=== PATIENT | female | born 1975 | race Caucasian/White ===

== ENCOUNTER 2019-01-06 14:07 | Inpatient (IN) | payer BC ==
[2019-01-06] VITALS (25 sets, daily range): BP systolic 80–112; BP diastolic 39–79
[~2019-01-06] VITALS: Ht 165.1 cm; Wt 105.7 kg
--- NOTE | 2019-01-06 14:09 | NUR ---
PT WHEELCHAIRED TO ER BED 8
--- NOTE | 2019-01-06 14:23 | NUR ---
URINE CUP HANDED TO PT FOR SAMPLE
[2019-01-06] MEDS ORDERED: NACL 0.9% 500 ML IV ONE (14:27)
[2019-01-06] MEDS ORDERED: ONDANSETRON 4 MG/2 ML VIAL IVP ONE (14:30)
[2019-01-06] MEDS ORDERED: KETOROLAC 30 MG/ML VIAL IVP ONE (14:30)
--- NOTE | 2019-01-06 14:33 | NUR ---
BROUGHT IN BY FROM CLINIC, REFERRED TO R/O KIDNEY STONES. PT C/O LOWER BACK PAIN AND DYSURIA X TODAY. PT REPORTS INTERMITENT STABING PAIN IN LT LOWER BACK AND BURNING URINATION AT 03/31. + N/V. DENIES INJURY. VSS. ER TO SEE PT. RECEIVED TORADOL IM FROM CLINIC HX---DENIES RX---NONE
--- NOTE | 2019-01-06 14:48 | NUR ---
PT LETHARGIC AND HYPOTENSIVE WITH BP OF 89/41, ER MD NOTIFIED.
--- NOTE | 2019-01-06 15:00 | NUR ---
DR BARAHONA MADE AWARE OF BLOOD SUGAR AND BP. NEW IVF ORDERED. NS BOLUS OF 500 COMPLETED NOW.
[2019-01-06] MEDS ORDERED: DEXT 5% / NACL 0.9% 500 ML IV ONE (15:05)
--- NOTE | 2019-01-06 15:13 | NUR ---
PT WHEELCHAIRED TO BATHROOM BY LING HERNANDEZ TO PROVIDE URINE SAMPLE.
[2019-01-06] MEDS ORDERED: ASPIRIN 81 MG TAB.CHEW PO ONE (15:30)
--- NOTE | 2019-01-06 15:31 | NUR ---
PT GOING TO CT AT THIS TIME
[2019-01-06 15:34] LABS: APPEARANCE,URINE CLOUDY (CLEAR); BILIRUBIN,URINE NEGATIVE (NEGATIVE); BLOOD, URINE 3+ (NEGATIVE); COLOR,URINE ORANGE (YELLOW); LEUKOCYTE ESTERASE ,URINE TRACE (NEGATIVE); NITRITE, URINE POSITIVE (NEGATIVE); PH,URINE 5.5 (5.0-9.0); UGLUCOSE NEGATIVE (NEGATIVE)
[2019-01-06 15:37] LABS: RBC,URINE TOO NUMEROUS TO COUN /HPF (0-5)
--- NOTE | 2019-01-06 15:40 | NUR ---
PT RETURNED FROM CT WITHOUT PROBLEMS.
[2019-01-06] MEDS ORDERED: DOPamine 400 MG/D5W PREMIX 250 ML IV ONE (15:45)
[2019-01-06] MEDS ORDERED: LEVOFLOXACIN 500 MG/D5W PREMIX 100 ML IV ONE (15:45)
--- NOTE | 2019-01-06 16:07 | NUR ---
BP 77/30, WENT UP TO 10MCG/MIN/KG ON DOBUTAMINE
[2019-01-06] MEDS ORDERED: METOCLOPRAMIDE 10 MG/2 ML INJ VIAL IVP ONE (16:10)
--- NOTE | 2019-01-06 16:20 | NUR ---
PT VOMITING YELLOW EMESIS, ER MD MADE AWARE.
--- NOTE | 2019-01-06 16:27 | NUR ---
PT BP 92/38, MAP OF 56, TITRATED UP TO 15MCG/KG/MIN, PT TACHYCARDIC AT 130. ER MADE AWARE.
--- NOTE | 2019-01-06 16:29 | NUR ---
PT REPORTS THROBING HEADACHE ON RT SIDE OF HEAD AT 8/10. PT DENIES CP, SOB, OR VISUAL DISTRURBANCES.
[2019-01-06 16:38] LABS: BASOPHILS % (AUTO) 0.1 % (0.0-2.0); EOSINOPHILS % (AUTO) 0.2 % (0.0-4.0); HEMATOCRIT 40.6 % (36-48); HEMOGLOBIN 13.6 g/dL (12.0-16.0); LYMPHOCYTES # (AUTO) 0.1 K/uL (2.5-16.5); LYMPHOCYTES % (AUTO) 3.8 % (20.5-51.1); MEAN CORPUSCULAR HEMOGLOBIN 30 pg (27-31); MEAN CORPUSCULAR HGB CONC 34 g/dL (33-37); MONOCYTES % (AUTO) 0.9 % (1.7-9.3); NEUTROPHILS # (AUTO) 3.5 K/uL (1.8-7.7); PLATELET COUNT (AUTO) 57 K/uL (140-450); RED BLOOD CELL COUNT(AUTO) 4.56 MIL/uL (4.20-5.40); RED CELL DISTRIBUTION WIDTH 13.3 % (11.6-13.7); WHITE BLOOD COUNT (AUTO) 3.6 K/uL (4.8-10.8)
--- NOTE | 2019-01-06 16:40 | NUR ---
DOPAMINE INCREASED TO 20MCQ/MIN. PT TACHYCARDIC. DR BARAHONA MADE AWARE. BP 105/32 (55)
[2019-01-06] MEDS ORDERED: NACL 0.9% 1,000 ML IV ONE ×3 (16:45→19:20)
--- NOTE | 2019-01-06 16:45 | NUR ---
PT DENIES PAIN AT THIS TIME.
[2019-01-06 16:47] LABS: PROTHROMBIN TIME 9.6 secs (10.8-13.4)
[2019-01-06 16:51] LABS: ALBUMIN 3.1 g/dL (3.4-5.0); ANION GAP 19.5 (8-16); CREATININE 1.1 mg/dL (0.6-1.3); POTASSIUM 3.5 mmol/L (3.5-5.1); TOTAL BILIRUBIN 0.6 mg/dL (0.0-1.0)
[2019-01-06] MEDS ORDERED: PHENYLEPHRINE 10 MG in NACL 0.9% 250 ML IV ONE (16:55)
--- NOTE | 2019-01-06 16:58 | NUR ---
DOBUTAMINE DOWN TO 15MCG/KG/MIN.
[2019-01-06] MEDS ORDERED: NACL 0.9% 1,000 ML IV SCH (16:59)
[2019-01-06] MEDS ORDERED: DOCUSATE SODIUM 100 MG GELCAP PO PRN (17:00)
[2019-01-06] MEDS ORDERED: MORPHINE SULFATE 2 MG/ML SYR IVP PRN (17:00)
--- NOTE | 2019-01-06 17:02 | NUR ---
STOPPED DOBUTAMINE, DR BARAHONA AT BEDSIDE. PT AAOX4, COOPERATIVE, SPEECH CLEAR.
[2019-01-06] MEDS ORDERED: PHENYLEPHRINE 10 MG/ML VIAL ONE ×4 (17:09→22:25)
--- NOTE | 2019-01-06 17:10 | NUR ---
STARTED JIM-SYNEPHRINE. PT HYPOTENSIVE AT 68/23, HEART RATE HAS DECREASED TO 112, PT DENIES PAIN AT THIS TIME, PT AAOX4, DR BARAHONA AT BEDSIDE.
--- NOTE | 2019-01-06 17:20 | NUR ---
INCREASED JIM-SYNEPHRINE TO 100MCG/MIN. PT SHIVERING, TEMPERATURE 98.5. FAMILY AT BEDSIDE. PT AAOX4, SPEECH CLEAR
--- NOTE | 2019-01-06 17:30 | NUR ---
ADMITTED FROM ER THIS 43 YR. OLD FEMALE PER [facility]. BY ER NURSES WITH CC OF BLOOD IN THE URINE AND BACK PAIN, VOMITING. DENIES ANY BACK PAIN AT THIS TIME. IV NEOSYNEPHRINE DRIP AT 100 MCG/MIN VIA LEFT HAND IV SITE. 0.9 NS BOLUS INFUSING VIA RT AC IV SITE. CUPOLA TENDER HELPER SHOWS ST. AWAKE , ALERT, ORIENTED. ABLE TO REPOSITION SELF IN BED WITH MINIMAL ASSISTANCE. RESP. EASY AND REGULAR. 02 SAT 98% ON RA. SL. GEN. EDEMA NOTED.
--- NOTE | 2019-01-06 17:30 | NUR ---
Patient will be admitted to care of [facility]. Admited to ICU VIA GUANA W/ VSS. Will go to room ICU 5. Belongings list completed. Report to CHARGE NURSE.
--- NOTE | 2019-01-06 17:45 | NUR ---
0.9 NS BOLUS INFUSED. IV 0.9 NS STARTED AT 160 ML/HR.
[2019-01-06 17:53] LABS: CHOL/HDL RATIO 9.1 (1-4.5); FREE T4 (FREE THYROXINE) 1.02 ng/dL (0.76-1.46); MAGNESIUM 1.4 mg/dL (1.8-2.4); THYROID STIMULATING HORMONE 1.69 uIU/mL (0.34-3.74)
[2019-01-06] MEDS ORDERED: KETOROLAC 15 MG/ML VIAL IVP PRN (17:55)
--- NOTE | 2019-01-06 18:00 | NUR ---
AT BEDSIDE. DR. BOLANOS SPOKE TO PT RE: CENTRAL LINE. REFUSED TO HAVE IT AT THIS TIME.
[2019-01-06] MEDS ORDERED: MAG SULF 2000 MG/WATER PREMIX 50 ML IV ONE (18:15)
[2019-01-06] MEDS ORDERED: SODIUM PHOS / POTASSIUM PHOS 1 PKT PDR PO SCH (18:15)
[2019-01-06] MEDS: NACL 0.9% 1,000 ML IV SCH (18:26)
--- NOTE | 2019-01-06 18:30 | NUR ---
HAVING CHILLS AT TIMES BUT PT REMAINS AFEBRILE.
--- NOTE | 2019-01-06 19:00 | NUR ---
DR. SCHWARZ HERE TO SEE AND EXAMINE PT. REPORT GIVEN TO Lesa ROCHE RN
[2019-01-06] MEDS ORDERED: PHENYLEPHRINE 10 MG in NACL 0.9% 250 ML IV PRN (19:05)
--- NOTE | 2019-01-06 19:10 | NUR ---
ASSUMED CARE OF PT.INITIAL ASSESSMENT COMPLETED.PT AWAKE ALERT AND ORIENTED X4.ON ROOM AIR.NO SOB NOTED.PERIPHERAL IV TO LT F/A G22 INTACT INFUSING ORDERED IVF.AND PERIPHERAL IV TO RT AC G20 INTACT INFUSING JIM SYNEPHRINE 10MG IN 250ML NS AT 100MCG/MIN(150ML/HR).ABDOMEN SOFT NON TENDER.PT ABLE TO MOVE ALL EXTREMITIES.SKIN INTACT.PT C/O PAIN TO RT SHOULDER.WILL MEDICATE WITH TORADOL ORDERED BY DR BOLANOS.
--- NOTE | 2019-01-06 19:25 | NUR ---
DR SCHWARZ EXPLAINED TO PT THE NEED FOR CENTRAL LINE; PT VERBALIZED UNDERSTANDING.CONSENT OBTAINED.WITNESSED BY MARY DEGROOT RN
[2019-01-06] MEDS ORDERED: PIPERACILLIN/TAZOBACTAM 3.375 GM VIAL IV ONE (19:54)
[2019-01-06] MEDS: PIPERACILLIN/TAZOBACTAM 3.375 GM in DEXTROSE 5% 50 ML IV SCH (20:26)
[2019-01-06 20:43] LABS: BARBITURATE, URINE NEG. ng/ml (NEG <=200); BENZODIAZEPINE, URINE NEG. ng/mL (NEG <=200); CANNABINOID, URINE NEG. ng/mL (NEG <=50); COCAINE, URINE NEG. ng/mL (NEG <=300); OPIATE, URINE NEG. ng/mL (NEG <=2000); PHENCYCLIDINE SCREEN,URINE NEG. ng/mL (NEG <=25)
[2019-01-06] MEDS: DEXT 5% /NACL 0.9% 1,000 ML IV SCH (21:06)
[2019-01-06] MEDS: KETOROLAC 15 MG/ML VIAL IVP PRN (22:19)
--- NOTE | 2019-01-06 22:30 | NUR ---
TRIPLE LUMEN CATHETER TO RT IJ INSERTED BY DR BOLANOS.NO BLEEDING NOTED TO SITE; XRAY DONE
[2019-01-06] MEDS: PHENYLEPHRINE 40 MG in NACL 0.9% 250 ML IV PRN (23:25)
[2019-01-07] VITALS (95 sets, daily range): BP systolic 83–112; BP diastolic 37–96
[2019-01-07] MEDS: NACL 0.9% 1,000 ML IV SCH
--- NOTE | 2019-01-07 01:00 | NUR ---
PT GIVEN MORPHINE FOR PAIN TO RT SHOULDER THAT EXTENDS TO ELBOW AND FOREARM AT 0031; PT STILL C/O OF PAIN TO THE AREA; DR BOLANOS AWARE;CAME TO SEE AND EXAMINED PT. AWARE THAT TORADOL X2 AND MORPHINE ALREADY GIVEN FOR THE PAIN ON THAT SITE; AWAITING US TECH TO PERFORM US TO RUE. PT AND PTS WHO WAS AT BEDSIDE AT THIS TIME IS AWARE.
--- NOTE | 2019-01-07 01:30 | NUR ---
US TO RUE COMPLETED.AWAITING RESULT
--- NOTE | 2019-01-07 02:03 | NUR ---
PHONE CALL TO DR BOLANOS RE; PT COMPLAINING OF WORSENING PAIN AND NOW NUMBNESS TO HER RIGHT FINGERS; MADE AWARE THAT MORPHINE WAS GIVEN 0031; ICE COMPRESS ALREADY DONE, AFFECTED EXTREMITY ELEVATE; PT REPOSITIONED.NON OF THESE INTERVENTIONS WORKED.AWAITING ORDERS FROM DR BOLANOS. Addendum: 01/07/19 at 0209 by Christy Morgan RN AWARE ULTRASOUND REPORT FOR US RUE; NO EVIDENCE OF DVT NOTED
[2019-01-07] MEDS ORDERED: MORPHINE SULFATE 2 MG/ML SYR IVP PRN (02:10)
[2019-01-07] MEDS ORDERED: METHOCARBAMOL 500 MG TAB PO PRN (02:10)
[2019-01-07] MEDS ORDERED: PIPERACILLIN/TAZOBACTAM 3.375 GM VIAL IV ONE (03:21)
[2019-01-07] MEDS: DEXT 5% /NACL 0.9% 1,000 ML IV SCH ×4 (03:27→20:52)
[2019-01-07] MEDS: HYDROcodone/APAP 7.5/325 MG 1 TAB PO PRN ×2 (03:34→20:49)
--- NOTE | 2019-01-07 03:34 | NUR ---
PT STILL VERBALIZING 10/10 PAIN TO RUE, FROM SHOULDER TO FINGERS.MORPHINE NOT WORKING PER PT.NORCO GIVEN ORDERED. EXTREMITY ELEVATED; REPOSITIONED.WILL CONTINUE TO MONITOR
--- NOTE | 2019-01-07 04:00 | NUR ---
PT DOZING ON AND OFF; STILL C/O PAIN TO RUE FROM SHOULDER ,ELBOW TO FINGERS.VERBALIZED NUMBNESS TO FINGERS GETTING BETTER.PT ABLE TO MOVE HANDS AT THIS TIME.ROM EXERCISE DONE WITH GOOD EFFECT
[2019-01-07] MEDS: PIPERACILLIN/TAZOBACTAM 3.375 GM in DEXTROSE 5% 50 ML IV SCH (04:37)
[2019-01-07] MEDS: PHENYLEPHRINE 40 MG in NACL 0.9% 250 ML IV PRN ×3 (04:48→20:51)
--- NOTE | 2019-01-07 06:11 | NUR ---
PT ASLEEP; NO S/SX OF PAIN AT THIS TIME.LEFT UNDISTURBED FOR NOW.STILL ON JIM SYNEPHRINE 40MG IN 250ML NS AT 100MCG/MIN(37.5ML/HR).TOLERATING ROOM AIR.NO SOB NOTED.TLC TO RT IJ INTACT WITH GOOD BLOOD RETURN TO ALL 3 PORTS.RIVERA CATHETER INTACT.
[2019-01-07 06:25] LABS: ANION GAP 14.6 (8-16); CARBON DIOXIDE 20.8 mmol/L (21-32); CREATININE 0.7 mg/dL (0.6-1.3); POTASSIUM 3.4 mmol/L (3.5-5.1)
[2019-01-07 06:27] LABS: CHOL/HDL RATIO 6.9 (1-4.5); MAGNESIUM 1.9 mg/dL (1.8-2.4); PHOSPHORUS 1.4 mg/dL (2.5-4.9)
--- NOTE | 2019-01-07 07:34 | NUR ---
RECEIVED PT IN BED. A&O X4. BILATERAL LUNGS SOUNDS CLEAR. DENIES PAIN OR DISCOMFORT AT THIS TIME. DENIES PAIN ON THE RIGHT SHOULDER. BOWEL SOUNDS HEARD FROM ALL 4 QUADS. SATING 94% IN RA. CENTRAL LINE TO RIGHT IJ WITH TRIPLE LUMEN. ALL PATENT AND ASYMPTOMATIC. CAPILLARY REFILL WITHIN 3 SEC. NO EDEMA NOTED. RIVERA CATHETER IN PLACE. NO FEVER. ON NORSYNEPHRINE DRIP RUNNING AT 100 MCG/MIN. SKIN INTACT. RESIDENTS MAKING ROUNDS AT THIS TIME AND PT EXPLAINED OF THE PROGNOSIS AND UNDERSTOOD THE TREATMENT PLAN. CALL LIGHT IN REACH. BED KEPT ELEVATED 30 DEGREES. WILL CONTINUE TO MONITOR.
[2019-01-07] MEDS: TAMSULOSIN 0.4 MG CAP PO SCH (07:54)
--- NOTE | 2019-01-07 08:03 | NUR ---
DR. SCHWARZ AT BED SIDE. NEW ORDER RECEIVED FOR CVP MONITORING. NOTED AND WILL CARRY OUT.
--- NOTE | 2019-01-07 08:26 | NUR ---
CVP INSTALLED ORDERED AND READS 11 AT THIS TIME. WILL CONTINUE TO MONITOR.
[2019-01-07 08:50] LABS: BASOPHILS % (AUTO) 0.1 % (0.0-2.0); EOSINOPHILS # (AUTO) 0.2 K/uL (0-0.4); EOSINOPHILS % (AUTO) 2.2 % (0.0-4.0); HEMATOCRIT 35.3 % (36-48); LYMPHOCYTES # (AUTO) 0.4 K/uL (2.5-16.5); LYMPHOCYTES % (AUTO) 3.9 % (20.5-51.1); MEAN CORPUSCULAR HEMOGLOBIN 30 pg (27-31); MEAN CORPUSCULAR HGB CONC 34 g/dL (33-37); MEAN CORPUSCULAR VOLUME 88.5 fL (80-94); MONOCYTES # (AUTO) 0.6 K/uL (0.8-1.0); NEUTROPHILS # (AUTO) 9.1 K/uL (1.8-7.7); NEUTROPHILS % (AUTO) 87.8 % (42.2-75.2); PLATELET COUNT (AUTO) 68 K/uL (140-450); RED BLOOD CELL COUNT(AUTO) 3.99 MIL/uL (4.20-5.40); RED CELL DISTRIBUTION WIDTH 13.4 % (11.6-13.7); WHITE BLOOD COUNT (AUTO) 10.3 K/uL (4.8-10.8)
--- NOTE | 2019-01-07 09:13 | NUR ---
PT CONSUMED ABOUT 50% OF THE CLEAR LIQUID DIET. DENIES ANY PAIN OR DISCOMFORT. REPOSITIONED FOR COMFORT. WILL CONTINUE TO MONITOR.
[2019-01-07] MEDS ORDERED: POTASSIUM CHLORIDE 10 MEQ TABER PO SCH (09:15)
[2019-01-07] MEDS: SODIUM PHOS / POTASSIUM PHOS 1 PKT PDR PO SCH ×2 (09:38→20:07)
--- NOTE | 2019-01-07 09:45 | NUR ---
PK=[id number]. TITRATED DOWN NORSYNEPHRINE DRIP TO 50 MCG/MIN.
[2019-01-07] MEDS: THIAMINE 200 MG in NACL 0.9% 50 ML IV SCH ×2 (09:58→20:07)
--- NOTE | 2019-01-07 10:08 | NUR ---
AT BED SIDE.
--- NOTE | 2019-01-07 10:35 | NUR ---
PT STATED THAT SHE DOESN'T FEEL LIKE SHE NEEDS TO DEFECATE BUT FEELS LIKE SHE HAS GAS TO PASS. PT TRYING TO PASS GAS AT THIS TIME. REPOSITIONED FOR COMFORT. WILL CONTINUE TO MONITOR.
--- NOTE | 2019-01-07 10:42 | NUR ---
DR. AGUIRRE MADE AWARE OF PT FEELING LIKE HAVING GAS IN THE LOWER ABDOMEN. NEW ORDER RECEIVED AND WILL CARRY OUT.
[2019-01-07] MEDS ORDERED: SIMETHICONE 80 MG TAB.CHEW PO PRN (10:45)
--- NOTE | 2019-01-07 10:50 | NUR ---
NEOSYNEPHRINE DRIP TITRATED UP TO 100 MCG/MIN. BP=86/42. WILL CONTINUE TO MONITOR.
--- NOTE | 2019-01-07 10:57 | NUR ---
KUB BEING PERFORMED AT BED SIDE AT THIS TIME.
[2019-01-07] MEDS: ASCORBIC ACID INJ 1,500 MG in NACL 0.9% 100 ML IV SCH ×3 (11:37→23:24)
[2019-01-07] MEDS: PIPER/TAZO 3.375GM/D5W PREMIX 50 ML IV SCH ×2 (12:23→20:49)
--- NOTE | 2019-01-07 12:50 | NUR ---
PT CONSUMED 80% OF LUNCH MEAL.
[2019-01-07] MEDS: ACETAMINOPHEN 325 MG TAB PO PRN (13:05)
--- NOTE | 2019-01-07 13:05 | NUR ---
PT C/O HEADACHE 10/01. ADMINISTERED MED ORDERED. AFEBRILE. VSS. WILL CONTINUE TO MONITOR.
--- NOTE | 2019-01-07 13:54 | NUR ---
PT NO S/SX PAIN. ASLEEP AT THIS TIME AND VSS. WILL CONTINUE TO MONITOR.
--- NOTE | 2019-01-07 14:19 | NUR ---
VISITORS AT BED SIDE AT THIS TIME.
[2019-01-07] MEDS ORDERED: LEVOFLOXACIN 750 MG/D5W PREMIX 150 ML IV SCH (16:00)
--- NOTE | 2019-01-07 16:42 | NUR ---
VISITORS CONSISTENTLY COME IN TO VISIT THE PT. PT DENIES OF ANY PAIN OR DISCOMFORT AT THIS TIME. CONTINUING WITH NORSYNEPHRINE DRIPS AT 100 MCG/MIN. WILL CONTINUE TO MONITOR.
--- NOTE | 2019-01-07 17:57 | NUR ---
SISTER AT BED SIDE. DINNER SERVED. REPOSITIONED FOR DINNER. VSS. WILL CONTINUE TO MONITOR.
--- NOTE | 2019-01-07 18:35 | NUR ---
XA=[phone]. NEOSYNEPHRINE DRIP TITRATED DOWN TO 50 MCG/MIN. WILL CONTINUE TO MONITOR.
--- NOTE | 2019-01-07 19:02 | NUR ---
PT REQUESTED TO HAVE NO MORE VISITORS EXCEPT HER SO THAT SHE CAN REST.
--- NOTE | 2019-01-07 19:13 | NUR ---
BED SIDE REPORT GIVEN TO NIGHT NURSE FOR CONTINUITY OF CARE. PT VSS. DENIES ANY PAIN OR DISCOMFORT. ALL SAFETY PRECAUTIONS ARE IN PLACE.
--- NOTE | 2019-01-07 19:15 | NUR ---
ASSUMED CARE OF PT.INITIAL ASSESSMENT COMPLETED.PT AWAKE ALERT AND ORIENTED X4.ON ROOM AIR.DENIES SOB.SR TO ST NOTED ON MONITOR.TRIPLE LUMEN CATHETER TO RT IJ INTACT WITH GOOD BLOOD RETURN TO ALL 3 PORTS INFUSING ORDERED IVF AND JIM SYNEPHRINE 40MG IN 250ML NS AT 40MCG/MIN(15ML/HR).CVP LINE ZEROED(10).SKIN REMAINS INTACT.PT ABLE TO MOVE ALL EXTREMITIES.RIVERA CATHETER INTACT WITH CLEAR YELLOW URINE, ADEQUATE AMT.DENIES PAIN WHEN ASKED.REPOSITIONED.CALL LIGHT WITHIN REACH.INSTRUCTED TO CALL FOR ASSISTANCE.
--- NOTE | 2019-01-07 20:30 | NUR ---
V/B ; UPDATED ON PTS PRESENT CONDITION.QUESTIONS ANSWERED.
--- NOTE | 2019-01-07 21:45 | NUR ---
PT ASLEEP AT THIS TIME; EASILY AROUSABLE.DENIES PAIN WHEN ASKED AFTER NORCO WAS GIVEN EARLIER FOR PAIN OF RT SHOULDER.JIM SYNEPHRINE STILL AT 40MCG/MIN.PT TOLERATING ROOM AIRN.DENIES SOB
--- NOTE | 2019-01-07 22:19 | NUR ---
PT C/O PAIN TO RT SHOULDER, NON RADIATING.REPOSITIONED.AFFECTED AREA ELEVATED WITH PILLOW.5/10 PAIN.NORCO GIVEN ORDERED.WILL MONITOR FOR EFFECTIVENESS OF PAIN MEDS
--- NOTE | 2019-01-07 23:19 | NUR ---
PT DOZING ON AND OFF AT THIS TIME.VERBALIZED RELIEF FROM PAIN ON RT SHOULDER. DENIES SOB ON ROOM AIR.
[2019-01-08] VITALS (34 sets, daily range): BP systolic 93–138; BP diastolic 58–80
--- NOTE | 2019-01-08 01:30 | NUR ---
PT ASLEEP; CENTRAL LINE TO RI IJ INTACT.JIM SYNEPHRINE 40MG IN 250ML NS AT 30MCG/MIN DECREASED TO 20MCG/MIN.BP 97/69.PROTOCOL TO KEEP SBP ABOVE 90 OR MAP ABOVE 65.WILL CONTINUE TO MONITOR VS
--- NOTE | 2019-01-08 03:30 | NUR ---
BP 106/68 JIM SYNEPHRINE ON HOLD FOR NOW.WILL CONTINUE TO MONITOR BP
[2019-01-08] MEDS: PIPER/TAZO 3.375GM/D5W PREMIX 50 ML IV SCH ×3 (05:00→20:38)
[2019-01-08] MEDS: DEXT 5% /NACL 0.9% 1,000 ML IV SCH (05:00)
--- NOTE | 2019-01-08 05:00 | NUR ---
MORNING AND ORAL CARE DONE WITH MINIMAL ASSISTANCE.RIVERA CATHETER CARE ALSO RENDERED. PT DENIES PAIN AT THIS TIME.JIM SYNEPHRINE STILL ON HOLD; BP117/79
--- NOTE | 2019-01-08 05:55 | NUR ---
PT VOIDED ABOUT 650ML BEFORE TRANSFER TO [facility]. I&O ALREADY DONE FOR SHIFT, WILL ENDORSE TO RECEIVING RN. Addendum: 01/09/19 at 0732 by Delia Fuentes RN DISREGARD, WRONG TIME.
[2019-01-08] MEDS: ASCORBIC ACID INJ 1,500 MG in NACL 0.9% 100 ML IV SCH ×3 (06:00→17:36)
--- NOTE | 2019-01-08 06:30 | NUR ---
DR NAGY AT BEDSIDE.SPOKE WITH PT. UPDATED ON PTS PRESENT CONDITION.QUESTIONS ANSWERED.MADE AWARE PT OFF JIM SYNEPHRINE SINCE 329
[2019-01-08 06:31] LABS: ANION GAP 10.4 (8-16); CARBON DIOXIDE 23.2 mmol/L (21-32); CREATININE 0.5 mg/dL (0.6-1.3); POTASSIUM 3.6 mmol/L (3.5-5.1)
[2019-01-08 06:33] LABS: MAGNESIUM 1.9 mg/dL (1.8-2.4); PHOSPHORUS 1.6 mg/dL (2.5-4.9)
--- NOTE | 2019-01-08 07:15 | NUR ---
RECEIVED REPORT FROM PAULIE ROCHE RN. PATIENT AWAKE ALERT AND ORIENTED. NO APPARENT PHYSICAL DISTRESS. NEURO INTACT. PERRL. SKIN WARM AND DRY TO TOUCH. LUNG SOUNDS EQUAL BILATERALLY. DENIES PAIN AT THIS TIME. RIGHT IJ CATHETER IN PLACE, INTACT AND PATENT. CVP MONITOR IN PLACE. ABDOMEN SOFT, NON-TENDER, NON-DISTENDED. RIVERA CATHETER IN PLACE, DRAINING TO GRAVITY. PERIPHERAL PULSES PALPABLE. SCD IN PLACE. SAFETY PRECAUTIONS IN PLACE. WILL CONTINUE TO MONITOR.
[2019-01-08] MEDS: NACL 0.9% 1,000 ML IV SCH ×2 (07:30→17:57)
[2019-01-08] MEDS: TAMSULOSIN 0.4 MG CAP PO SCH (08:13)
[2019-01-08] MEDS: THIAMINE 200 MG in NACL 0.9% 50 ML IV SCH ×2 (08:13→20:39)
[2019-01-08] MEDS: SODIUM PHOS / POTASSIUM PHOS 1 PKT PDR PO SCH (08:13)
[2019-01-08] MEDS: ACETAMINOPHEN 325 MG TAB PO PRN ×2 (08:14→16:22)
--- NOTE | 2019-01-08 08:14 | NUR ---
PATIENT COMPLAIN OF HEADACHE4-12/29, GIVEN PRN OF TYLENOL 650 MG PO. WILL CONTINUE TO MONITOR.
[2019-01-08] MEDS: ONDANSETRON 4 MG/2 ML VIAL IM/IVP PRN ×2 (08:23→18:09)
--- NOTE | 2019-01-08 08:23 | NUR ---
COMPLAIN OF FEELING NAUSEOUS, GIVEN ZOFRAN 4 MG IVP ORDERED. WILL CONTINUE TO MONITOR.
[2019-01-08] MEDS ORDERED: POTASSIUM PHOSPHATE 15 MM in NACL 0.9% 250 ML IV SCH (08:30)
--- NOTE | 2019-01-08 08:41 | NUR ---
PATIENT HAS BEEN SCREENED AND CATEGORIZED HIGH NUTRITION RISK. PATIENT WILL BE SEEN WITHIN 1-2 DAYS OF ADMISSION. 01/08/[address]
[2019-01-08 08:58] LABS: BASOPHILS % (AUTO) 0.2 % (0.0-2.0); EOSINOPHILS # (AUTO) 0.2 K/uL (0-0.4); EOSINOPHILS % (AUTO) 2.7 % (0.0-4.0); HEMATOCRIT 32.2 % (36-48); LYMPHOCYTES # (AUTO) 1.6 K/uL (2.5-16.5); LYMPHOCYTES % (AUTO) 27.2 % (20.5-51.1); MEAN CORPUSCULAR HEMOGLOBIN 30 pg (27-31); MEAN CORPUSCULAR HGB CONC 34 g/dL (33-37); MEAN CORPUSCULAR VOLUME 88.3 fL (80-94); MONOCYTES # (AUTO) 0.5 K/uL (0.8-1.0); MONOCYTES % (AUTO) 8.9 % (1.7-9.3); NEUTROPHILS # (AUTO) 3.6 K/uL (1.8-7.7); PLATELET COUNT (AUTO) 75 K/uL (140-450); RED BLOOD CELL COUNT(AUTO) 3.65 MIL/uL (4.20-5.40); RED CELL DISTRIBUTION WIDTH 14.1 % (11.6-13.7); WHITE BLOOD COUNT (AUTO) 5.9 K/uL (4.8-10.8)
[2019-01-08 09:53] LABS: T4 (THYROXINE) 8.7 ug/dL (4.5-12.0)
--- NOTE | 2019-01-08 11:15 | NUR ---
RIVERA CATHETER DISCONTINUED PER DR. NAGY. WILL MONITOR URINE OUTPUT.
[2019-01-08] MEDS: HYDROcodone/APAP 7.5/325 MG 1 TAB PO PRN (13:48)
[2019-01-08] MEDS: KETOROLAC 15 MG/ML VIAL IVP PRN (13:56)
--- NOTE | 2019-01-08 13:56 | NUR ---
PATIENT SEEN BY DR. NAGY. REPORTED HAVING A BAD HEADACHE, NOT RELIEVED BY TYLENOL. PATIENT JUST RECEIVED NORCO, DR. NAGY SAID OK TO GIVE TORADOL. WILL CONTINUE TO MONITOR.
--- NOTE | 2019-01-08 15:04 | NUR ---
01/08/19 RD INITIAL ASSESSMENT COMPLETED PLEASE REFER TO NUTRITION ASSESSMENT UNDER CARE ACTIVITY FOR ESTIMATED NUTRITIONAL NEEDS. 1. CONTINUE REGULAR DIET TOLERATED 2. RD PROVIDED LOWERED TRIGLYCERIDE NUTRITION EDUCATION AND CARDIAC TLC HANDOUT. PT ACCEPTED 3. RD TO FOLLOW-UP 3-5 DAYS, MODERATE RISK ZHAO GAMING, RD
--- NOTE | 2019-01-08 17:32 | NUR ---
CALLED NAZARIO HAUSER TO DISCONTINUE CVP MONITORING, PATIENT ON TELEMETRY STATUS AT THIS TIME.
[2019-01-08] MEDS ORDERED: APAP/BUTAL/CAFF 325/50/40 MG 1 TAB PO PRN (18:00)
--- NOTE | 2019-01-08 18:26 | NUR ---
PATIENT AWAKE, ALERT AND ORIENTED. MEDICATED FOR COMPLAIN OF HEADACHE X 3 WITH LITTLE RELIEF. GIVEN ZOFRAN X 2 FOR C/O NAUSEA. VSS. RIVERA CATHETER DISCONTINUED, VOIDING FREELY WITHOUT DIFFICULTY. CONTINUE ON IV FLUIDS. ASSISTED PATIENT UP TO BEDSIDE COMMODE, MIN ASSIST NEEDED. PATIENT CHANGED TO TELE STATUS. SAFETY PRECAUTION IN PLACE. WILL CONTINUE TO MONITOR.
--- NOTE | 2019-01-08 19:10 | NUR ---
REPORT GIVEN TO JACOBO LIVINGSTON FOR CONTINUITY OF CARE.
--- NOTE | 2019-01-08 19:11 | NUR ---
RECEIVED REPORT FROM DAY SHIFT RN FOR CONTINUITY OF CARE. PT AAOX4, ON ROOM AIR. ABLE TO FOLLOW COMMANDS AND MAKE NEEDS KNOWN. PT WITH GENERALIZED WEAKNESS, ABLE TO USE BEDSIDE COMMODE. SKIN IS INTACT. RIGHT IJ TRIPLE LUMEN CATH IN PLACE WITH GOOD BLOOD RETURN FROM 2/3 PORTS. DISCUSSED PLAN OF CARE WITH PT, PT VERBALIZED UNDERSTANDING. VITAL SIGNS STABLE, NO SIGNS OF DISTRESS NOTED. BED IN LOWEST POSITION, CALL LIGHT WITHIN REACH. WILL CONTINUE TO MONITOR CLOSELY.
--- NOTE | 2019-01-08 22:44 | NUR ---
PT USED BEDSIDE COMMODE AND VOIDED ABOUT 750ML, CLOUDY URINE.
[2019-01-09] VITALS: BP 117/77
--- NOTE | 2019-01-09 | NUR ---
VITAL SIGNS STABLE, NO SIGNS OF DISTRESS NOTED. BED IN LOWEST POSITION, CALL LIGHT WITHIN REACH. WILL CONTINUE TO MONITOR CLOSELY.
[2019-01-09] MEDS: ASCORBIC ACID INJ 1,500 MG in NACL 0.9% 100 ML IV SCH ×4 (00:58→18:09)
--- NOTE | 2019-01-09 02:15 | NUR ---
PT USED BEDSIDE COMMODE AND VOIDED 600ML, CLOUDY URINE.
[2019-01-09 04:00] VITALS: BP 114/80
--- NOTE | 2019-01-09 04:00 | NUR ---
VITAL SIGNS STABLE, NO SIGNS OF DISTRESS NOTED. BED IN LOWEST POSITION, CALL LIGHT WITHIN REACH. WILL CONTINUE TO MONITOR CLOSELY.
[2019-01-09] MEDS: PIPER/TAZO 3.375GM/D5W PREMIX 50 ML IV SCH ×3 (04:51→21:18)
[2019-01-09] MEDS: NACL 0.9% 1,000 ML IV SCH ×2 (05:55→06:43)
--- NOTE | 2019-01-09 05:55 | NUR ---
PT VOIDED ABOUT 650ML BEFORE TRANSFER TO [facility]. I&O ALREADY DONE FOR SHIFT, WILL ENDORSE TO RECEIVING RN.
--- NOTE | 2019-01-09 06:20 | NUR ---
TRANSFERRED PT TO [facility] ROOM 125-B. ENDORSED PT TO MARY IGFFORD. PT IN STABLE CONDITION, ALL BELONGINGS WITH PT.
[2019-01-09 06:28] LABS: ANION GAP 11.9 (8-16); CARBON DIOXIDE 23.7 mmol/L (21-32); CREATININE 0.5 mg/dL (0.6-1.3); POTASSIUM 3.6 mmol/L (3.5-5.1)
--- NOTE | 2019-01-09 06:34 | NUR ---
RECEIVED BEDSIDE REPORT FROM JACOBO HERNANDEZ. PATIENT IS AWAKE, ALERT, AND COOPERATIVE. SKIN IS WARM AND DRY. RIJ TLC NOTED 2/3 OF THE LINE FLUSHES. RESPIRATION EVEN UNLABORED ON ROOM AIR. NO DISTRESS NOTED. PLAN OF CARE WAS REVIEWED AND DISCUSSED. ALL SAFETY MEASURES IN PLACE. VITALS STABLE. BED IS AT LOW POSITION. CALL LIGHT WITHIN REACH AND VERBALIZES ITS USE. WILL CONTINUE TO MONITOR.
[2019-01-09 06:39] LABS: MAGNESIUM 1.9 mg/dL (1.8-2.4); PHOSPHORUS 2.1 mg/dL (2.5-4.9)
--- NOTE | 2019-01-09 07:30 | NUR ---
endorsed patient to day shift nurse for continuity of care. patient is in stable condition.
[2019-01-09 08:00] VITALS: BP 126/75
[2019-01-09] MEDS ORDERED: POTASSIUM PHOSPHATE 15 MM in NACL 0.9% 250 ML IV SCH (08:00)
[2019-01-09] MEDS: ONDANSETRON 4 MG/2 ML VIAL IM/IVP PRN (08:02)
[2019-01-09] MEDS: TAMSULOSIN 0.4 MG CAP PO SCH (08:50)
[2019-01-09] MEDS: DOCUSATE SODIUM 100 MG GELCAP PO SCH ×2 (08:50→21:00)
[2019-01-09] MEDS: APAP/BUTAL/CAFF 325/50/40 MG 1 TAB PO PRN ×2 (08:52→22:11)
[2019-01-09] MEDS: THIAMINE 200 MG in NACL 0.9% 50 ML IV SCH ×2 (08:52→20:05)
--- NOTE | 2019-01-09 08:59 | NUR ---
ADMINISTERED MEDS TO PT ORDERED. TOLERATED WELL. PT UP AND SITTING ON HER BED. ADMINISTERED MEDS FOR NAUSEA AND FOR HER ALEMAN. NO DISTRESS AT THIS TIME. WILL CONTINUE TO MONITOR TO PT.
[2019-01-09 10:43] LABS: BASOPHILS % (AUTO) 0.2 % (0.0-2.0); EOSINOPHILS # (AUTO) 0.2 K/uL (0-0.4); EOSINOPHILS % (AUTO) 3.4 % (0.0-4.0); HEMATOCRIT 34.2 % (36-48); HEMOGLOBIN 11.6 g/dL (12.0-16.0); LYMPHOCYTES # (AUTO) 2.1 K/uL (2.5-16.5); LYMPHOCYTES % (AUTO) 40.4 % (20.5-51.1); MEAN CORPUSCULAR HEMOGLOBIN 30 pg (27-31); MEAN CORPUSCULAR HGB CONC 34 g/dL (33-37); MEAN CORPUSCULAR VOLUME 89.3 fL (80-94); MONOCYTES # (AUTO) 0.3 K/uL (0.8-1.0); MONOCYTES % (AUTO) 4.9 % (1.7-9.3); NEUTROPHILS # (AUTO) 2.6 K/uL (1.8-7.7); NEUTROPHILS % (AUTO) 51.1 % (42.2-75.2); RED BLOOD CELL COUNT(AUTO) 3.83 MIL/uL (4.20-5.40)
[2019-01-09 10:58] LABS: PLATELET COUNT (AUTO) 60 K/uL (140-450); WHITE BLOOD COUNT (AUTO) 5.1 K/uL (4.8-10.8)
--- NOTE | 2019-01-09 11:09 | NUR ---
CHECKED ON THE PT. COMPLAIN OF HAVING BURNING SENSATION AT THE INFUSION SITE. FLUSHED THE LINE, STATES ITS BETTER AFTER IT. INFORMED HER THAT CENTRAL LINE NEEDS TO BE REMOVE, WILL REMOVE AFTER THE INFUSION ID DONE. STATES WILL TAKE A NAP NOW, WILL DO IT LATER. WILL CONTINUE TO MONITOR PT.
[2019-01-09 12:00] VITALS: BP 133/90
--- NOTE | 2019-01-09 12:15 | NUR ---
CHECKED ON PT, LYING ON HER BED. VS NORMAL. ADMINISTER ABX ORDER. WILL DC THE PICC LINE FROM RT IJ AFTER STARTING GWENDOLYN PERIPHERAL IV LINE. PT VERBALIZED UNDERSTANDING. WILL CONTINUE TO MONITOR PT.
[2019-01-09] MEDS ORDERED: FUROSEMIDE 20 MG/2 ML VIAL IVP SCH (13:37)
--- NOTE | 2019-01-09 15:51 | NUR ---
DISCONTINUED THE CENTRAL LINE ORDERED BY THE MD. PT TOLERATED WELL. NO SIGN OF DISTRESS NOTED. FAMILY AT THE BEDSIDE. WILL CONTINUE TO MONITOR PT.
[2019-01-09 16:00] VITALS: BP 114/66
[2019-01-09] MEDS ORDERED: LOPERAMIDE 2 MG CAP PO SCH (18:18)
--- NOTE | 2019-01-09 18:25 | NUR ---
PT COMPLAINING OF HAVING DIARRHEA, ASKING FOR MEDS FOR IT. ADMINISTERED IMODIUM. PT IS ON ABX. WILL CONTINUE TO MONITOR PT. PT STATES HAVING LOOSE STOOL WITH SOME SOLID CHUNKS, NO FOUL SMELLING.
--- NOTE | 2019-01-09 19:20 | NUR ---
ENDORSED PT TO PM NURSE AT THE BEDSIDE. PT IN STABLE CONDITION.
--- NOTE | 2019-01-09 19:25 | NUR ---
RECEIVED BEDSIDE REPORT FROM DAY SHIFT NURSE. PATIENT IS AWAKE, ALERT, AND COOPERATIVE. RESPIRATION EVEN UNLABORED ON ROOM AIR. NO DISTRESS NOTED. SKIN IS WARM AND DRY. IV PATENT AND INTACT. FAMILY AT BEDSIDE. PLAN OF CARE WAS DISCUSSED. ALL SAFETY MEASURES IN PLACE. BED IS AT LOW POSITION. CALL LIGHT WITHIN REACH AND VERBALIZES ITS USE. WILL CONTINUE TO MONITOR.
[2019-01-09 20:00] VITALS: BP 112/61
--- NOTE | 2019-01-09 20:00 | NUR ---
INITIAL ASSESSMENT DONE. VITALS WERE TAKEN. PATIENT CONDITION STABLE. NO DISTRESS NOTED. FAMILY AT BEDSIDE. WILL CONTINUE TO MONITOR
--- NOTE | 2019-01-09 21:00 | NUR ---
ALL SCHEDULED MEDS WERE GIVEN PER ORDER. NO ASE NOTED. WILL CONTINUE TO MONITOR
--- NOTE | 2019-01-09 22:10 | NUR ---
PATIENT COMPLAINED OF 7/10 HEADACHE. PRN PAIN MED GIVEN PER ORDER. WILL CONTINUE TO MONITOR
[2019-01-10] VITALS: BP 119/62
--- NOTE | 2019-01-10 | NUR ---
VITALS WERE TAKEN. PATIENT CONDITION STABLE. NO DISTRESS NOTED. WILL CONTINUE TO MONITOR
--- NOTE | 2019-01-10 02:00 | NUR ---
PATIENT SLEEPING RESPIRATION EVEN UNLABORED ON ROOM AIR. NO DISTRESS NOTED. WILL CONTINUE TO MONITOR
[2019-01-10 04:00] VITALS: BP 99/62
--- NOTE | 2019-01-10 04:00 | NUR ---
VITALS WERE TAKEN. PATIENT CONDITION STABLE. NO DISTRESS NOTED. WILL CONTINUE TO MONITOR
[2019-01-10] MEDS: PIPER/TAZO 3.375GM/D5W PREMIX 50 ML IV SCH (04:34)
[2019-01-10] MEDS: ASCORBIC ACID INJ 1,500 MG in NACL 0.9% 100 ML IV SCH ×3 (05:50)
[2019-01-10 06:26] LABS: BASOPHILS % (AUTO) 0.3 % (0.0-2.0); EOSINOPHILS # (AUTO) 0.2 K/uL (0-0.4); HEMOGLOBIN 12.5 g/dL (12.0-16.0); LYMPHOCYTES # (AUTO) 2.9 K/uL (2.5-16.5); MEAN CORPUSCULAR HEMOGLOBIN 30 pg (27-31); MEAN CORPUSCULAR HGB CONC 34 g/dL (33-37); MEAN CORPUSCULAR VOLUME 89.4 fL (80-94); MONOCYTES # (AUTO) 0.4 K/uL (0.8-1.0); MONOCYTES % (AUTO) 7.4 % (1.7-9.3); NEUTROPHILS # (AUTO) 2.3 K/uL (1.8-7.7); NEUTROPHILS % (AUTO) 39.3 % (42.2-75.2); PLATELET COUNT (AUTO) 27 K/uL (140-450); RED BLOOD CELL COUNT(AUTO) 4.14 MIL/uL (4.20-5.40); RED CELL DISTRIBUTION WIDTH 13.8 % (11.6-13.7); WHITE BLOOD COUNT (AUTO) 5.9 K/uL (4.8-10.8)
[2019-01-10 06:29] LABS: ANION GAP 10.2 (8-16); CARBON DIOXIDE 28.3 mmol/L (21-32); CREATININE 0.6 mg/dL (0.6-1.3); POTASSIUM 3.5 mmol/L (3.5-5.1)
[2019-01-10 06:46] LABS: MAGNESIUM 1.8 mg/dL (1.8-2.4); PHOSPHORUS 3.4 mg/dL (2.5-4.9)
--- NOTE | 2019-01-10 07:34 | NUR ---
ENDORSED PATIENT TO DAY SHIFT NURSE. PATIENT IS IN STABLE CONDITION.
[2019-01-10 08:51] VITALS: BP 115/61
[2019-01-10] MEDS ORDERED: LEVO500T2 PO (08:58)
[2019-01-10] MEDS: DOCUSATE SODIUM 100 MG GELCAP PO SCH (09:00)
--- NOTE | 2019-01-10 09:00 | NUR ---
ADMINISTERED MEDS TO PT ORDERED. PT TOLERATED WELL. INFORMED HER WILL BE DISCHARGED TODAY. VERBALIZED UNDERSTANDING. WILL CONTINUE TO MONITOR PT.
[2019-01-10] MEDS: THIAMINE 200 MG in NACL 0.9% 50 ML IV SCH (09:03)
[2019-01-10] MEDS: TAMSULOSIN 0.4 MG CAP PO SCH (09:03)
--- NOTE | 2019-01-10 11:08 | NUR ---
PT PROVIDED WITH DISCHARGE INSTRUCTION, SICK NOTE PROVIDED AND ALL THE DC PACKET PROVIDED TO THE PT. VERBALIZED UNDERSTANDING OF THE DISCHARGE INSTRUCTION . FAMILY AT THE BEDSIDE. PT STABLE AND ABLE , ABLE TO COMMUNICATE .
== END 2019-01-10 11:00 | disposition home or self-care (01) | DRG 871 ==
LOC: MED 14:07 → EDBD 17:05 → MIC 17:05 → MMU 01-09 06:15
PROVIDERS: ADMIT General Practice; ATTEND General Practice
PROC: 02HV33Z Insertion of Infusion Device into Superior Vena Cava, Percutaneous Approach (ICD-10-PCS; principal; 2019-01-06)
PROC: B548ZZA Ultrasonography of Superior Vena Cava, Guidance (ICD-10-PCS; 2019-01-06)
DX: A41.9 Sepsis, unspecified organism (principal); R65.21 Severe sepsis with septic shock; N17.0 Acute kidney failure with tubular necrosis; E44.0 Moderate protein-calorie malnutrition; N12 Tubulo-interstitial nephritis, not specified as acute or chronic; E83.39 Other disorders of phosphorus metabolism; E83.42 Hypomagnesemia; Z68.38 Body mass index [BMI] 38.0-38.9, adult; D69.6 Thrombocytopenia, unspecified; N20.0 Calculus of kidney; E78.5 Hyperlipidemia, unspecified; K76.0 Fatty (change of) liver, not elsewhere classified; N83.201 Unspecified ovarian cyst, right side; M47.816 Spondylosis without myelopathy or radiculopathy, lumbar region; E87.6 Hypokalemia; E86.0 Dehydration; D64.9 Anemia, unspecified; E87.8 Other disorders of electrolyte and fluid balance, not elsewhere classified
CPT/HCPCS: 36415; 71045; 74018; 80048; 80053; 80305; 81001; 82140; 82150; 82948; 83036; 83605; 83690; 83735; 83880; 84100; 84436; 84439; 84443; 84479; 84484; 85025; 85610; 85730; 87040; 87081; 87086; 93005; 93971; 96365; 96375; 97110; 97116; 97161-GP; 97530; 99291; J1265; J1642; J1885; J1940; J1956; J2270; J2370; J2405; J2543; J2765; J3411; J3475; J7030; J7042; J7060; Q0092

== ENCOUNTER 2019-01-17 23:58 | Inpatient (IN) | payer BC ==
[~2019-01-17] VITALS: Ht 162.6 cm; Wt 103.9 kg
[~2019-01-17 23:58] MED LIST: LEVO500T2 PO
[2019-01-18] VITALS (64 sets, daily range): BP systolic 78–111; BP diastolic 29–78
--- NOTE | 2019-01-18 00:18 | NUR ---
PT WHEEL CHAIR ASSISTED TO BED 3.
[2019-01-18] MEDS ORDERED: cefTRIAXone 1,000 MG in DEXT 5% MINI-BAG PLUS 50 ML IV ONE (00:20)
[2019-01-18] MEDS ORDERED: NACL 0.9% 1,000 ML IV SCH (00:20)
[2019-01-18] MEDS ORDERED: NACL 0.9% 1,000 ML IV ONE ×3 (00:40→04:05)
[2019-01-18 00:48] LABS: RED CELL DISTRIBUTION WIDTH 13.5 % (11.6-13.7)
[2019-01-18 00:49] LABS: BASOPHILS % (AUTO) 0.2 % (0.0-2.0); EOSINOPHILS % (AUTO) 0.1 % (0.0-4.0); HEMATOCRIT 43.3 % (36-48); HEMOGLOBIN 14.4 g/dL (12.0-16.0); LYMPHOCYTES % (AUTO) 16.3 % (20.5-51.1); MEAN CORPUSCULAR HEMOGLOBIN 30 pg (27-31); MEAN CORPUSCULAR HGB CONC 33 g/dL (33-37); MEAN CORPUSCULAR VOLUME 90.3 fL (80-94); MONOCYTES % (AUTO) 0.7 % (1.7-9.3); NEUTROPHILS # (AUTO) 5.2 K/uL (1.8-7.7); NEUTROPHILS % (AUTO) 82.7 % (42.2-75.2); PLATELET COUNT (AUTO) 57 K/uL (140-450); WHITE BLOOD COUNT (AUTO) 6.3 K/uL (4.8-10.8)
[2019-01-18] MEDS ORDERED: cefTRIAXone 1,000 MG VIAL ONE (00:53)
[2019-01-18 00:56] LABS: ANION GAP 21.3 (8-16); CARBON DIOXIDE 18.2 mmol/L (21-32); CREATININE 0.8 mg/dL (0.6-1.3); POTASSIUM 3.5 mmol/L (3.5-5.1)
--- NOTE | 2019-01-18 00:57 | NUR ---
EKG DONE AT BEDSIDE
[2019-01-18 01:02] LABS: ALBUMIN 3.7 g/dL (3.4-5.0); TOTAL BILIRUBIN 0.4 mg/dL (0.0-1.0)
[2019-01-18 01:27] LABS: APPEARANCE,URINE CLEAR (CLEAR); BILIRUBIN,URINE NEGATIVE (NEGATIVE); BLOOD, URINE 3+ (NEGATIVE); COLOR,URINE YELLOW (YELLOW); LEUKOCYTE ESTERASE ,URINE NEGATIVE (NEGATIVE); NITRITE, URINE NEGATIVE (NEGATIVE); UGLUCOSE NEGATIVE (NEGATIVE)
--- NOTE | 2019-01-18 01:30 | NUR ---
43 YO F BIB PRESENTS TO ED C/O SUDDEN ONSET GENERALIZED WEAKNESS. STATES THAT PT WAS FEELING NORMAL UP UNTIL AROUND 2200 AFTER TAKING FIRST DOSE OF BACTRIM FOR UTI. PT WAS ADMITTED TO [facility] ON 01/07 FOR UROSEPSIS. SHE WAS DISCHARGED ON TUESDAY AND FOLLOWED UP WITH HER PMD ON TUESDAY. SHE STATES SHE WAS SENT HOME WITH AN RX FOR BACTRIM. -- PT APPEARS LETHARGIC BUT IS COOPERATIVE. EYES CLOSED, ANSWERS TO NAME. HAS DIFFICULTY ANSWERING QUESTIONS. SEVERE GENERALIZED WEAKNESS PRESENT. REQUIRES WC ASSISTANCE. -- SKIN PINK, WARM, DRY. BREATHING EVEN, UNLABORED. PT IS TACHYCARDIC. PMH-- DENIES RX-- BACTRIM
[2019-01-18 02:00] LABS: RBC,URINE 11-20 (MOD) /HPF (0-5)
[2019-01-18 02:01] LABS: WBC,URINE 0-5 /HPF (0-5)
[2019-01-18] MEDS ORDERED: ONDANSETRON 4 MG/2 ML VIAL IVP ONE (02:45)
--- NOTE | 2019-01-18 02:45 | NUR ---
PT IS C/O NAUSEA AND IS REQUESTING MEDICATION. WILL NOTIFY DR. WYATT.
[2019-01-18] MEDS ORDERED: LORazepam 2 MG/ML VIAL IM/IVP PRN (03:05)
[2019-01-18] MEDS ORDERED: ZOLPIDEM 5 MG TAB PO PRN (03:05)
[2019-01-18] MEDS ORDERED: ONDANSETRON 4 MG/2 ML VIAL IM/IVP PRN (03:05)
[2019-01-18] MEDS ORDERED: MORPHINE SULFATE 2 MG/ML SYR IVP PRN (03:05)
[2019-01-18] MEDS ORDERED: DOCUSATE SODIUM 100 MG GELCAP PO PRN (03:05)
--- NOTE | 2019-01-18 03:20 | NUR ---
PT IS HYPOTENSIVE AT 86/39. DR. WYATT NOTIFIED. VERBAL ORDERS TO HANG 1000ML NS BOLUS RECEIVED. PRESSURE BAG APPLIED. WILL CONTINUE TO ADMIT PT TO TELE UNIT PER DR. WYATT.
[2019-01-18 03:27] LABS: MAGNESIUM 1.5 mg/dL (1.8-2.4)
[2019-01-18 03:28] LABS: BARBITURATE, URINE NEG. ng/ml (NEG <=200); BENZODIAZEPINE, URINE NEG. ng/mL (NEG <=200); CANNABINOID, URINE NEG. ng/mL (NEG <=50); COCAINE, URINE NEG. ng/mL (NEG <=300); OPIATE, URINE NEG. ng/mL (NEG <=2000); PHENCYCLIDINE SCREEN,URINE NEG. ng/mL (NEG <=25)
--- NOTE | 2019-01-18 03:30 | NUR ---
PT'S B/P: 105/53. WILL TRANSFER TO FLOOR AT THIS TIME.
--- NOTE | 2019-01-18 03:40 | NUR ---
Patient arrived in unit via gurney, accompanied by two PROVIDER RELATIONS REPRESENTATIVE's; patient is A/Ox4, able to make needs known, [place] speaking, able to ambulate from gurney to bed with 1-person assist. Introduced self, oriented patient to room and hospital environment. No distress noted, on room air. IV site on left hand, 20 gauge. Skin intact, but noted with head to toe redness. Diagnosis is Sepsis. Vitals upon admission are as follows: BP 86/46, RR 14, HR 111, O2Sat 98% on room air, Temp is 99.0; Dr. Araujo made aware. Bed in the lowest position, all light within reach. Initial assessment done. Will continue to monitor.
[2019-01-18] MEDS ORDERED: SULF-58 PO (03:41)
--- NOTE | 2019-01-18 03:45 | NUR ---
Patient will be admitted to care of Dr. Bro. Admited to TELE. Will go to room 120B. Belongings list completed. Report to MARY Raphael.
[2019-01-18] MEDS ORDERED: diphenhydrAMINE 50 MG/ML VIAL IVP PRN (03:50)
[2019-01-18 03:56] LABS: PROTHROMBIN TIME 10.3 secs (10.8-13.4)
[2019-01-18 03:58] LABS: CHOL/HDL RATIO 5.7 (1-4.5)
[2019-01-18] MEDS ORDERED: methylPREDNISolone SS 40 MG/ML VIAL IVP SCH ×2 (04:00→13:00)
[2019-01-18] MEDS ORDERED: methylPREDNISolone SS 125 MG/2 ML VIAL IVP SCH ×2 (04:00→05:00)
--- NOTE | 2019-01-18 04:00 | NUR ---
Dr. Araujo at bedside; BP rechecked and result was 80/33, MAP 46. Dr. Araujo ordered patient to be transferred to ICU do to decreased BP. Dr. Araujo made patient aware of central line insertion, patient verbalized understanding.
[2019-01-18] MEDS ORDERED: EPINEPHrine 1:1000 - 1 MG/ML AMP IM ONE (04:10)
--- NOTE | 2019-01-18 04:20 | NUR ---
Patient transferred to ICU due to BP 80/33; gave endorsement to FRINGING MACHINE OPERATORMARY Doan.
--- NOTE | 2019-01-18 04:35 | NUR ---
Called next of kin Louis Nava about patient transfer; did not answer but left a message to call hospital as soon as possible.
--- NOTE | 2019-01-18 04:45 | NUR ---
PATIENT TRANSFERRED FROM [facility] VIA [facility] WITH 2 ASSISTANCE DUE TO SEPSIS WITH LOW BP. PATIENT AAO X4 BUT DROWSY AT THIS TIME, ABLE TO ANSWER SOME QUESTIONS. BILATERAL LUNGS SOUND CLEAR ON ROOM AIR, O2 SAT 96%. ST ON THE MONITOR WITH HR 112. NO ACUTE DISTRESS NOTED. DENIES PAIN AT THIS TIME. PERIPHERAL LINE TO LEFT HAND 20 G RUNNING WITH NS BOLUS. SKIN INTACT WITH HEAD TO TOE REDNESS NOTED. DR. PALAFOX AT BEDSIDE AT THIS TIME. WILL CONTINUE TO MONITOR.
[2019-01-18] MEDS ORDERED: DEXTROSE 50% 50 ML SYR IVP PRN (04:55)
[2019-01-18] MEDS ORDERED: diphenhydrAMINE 50 MG/ML VIAL IVP SCH (05:00)
[2019-01-18] MEDS ORDERED: MAG SULF 2000 MG/WATER PREMIX 50 ML IV SCH (05:00)
[2019-01-18] MEDS ORDERED: NOREPINEPHRINE 4 MG in DEXTROSE 5% 250 ML IV PRN (05:00)
[2019-01-18] MEDS ORDERED: NOREPINEPHRINE 4 MG/4 ML VIAL IV ONE (05:23)
[2019-01-18] MEDS: DEXT 5% /NACL 0.9% 1,000 ML IV SCH ×2 (05:37→17:46)
[2019-01-18] MEDS: FAMOTIDINE 20 MG/2 ML VIAL IV SCH ×2 (05:46→21:33)
[2019-01-18] MEDS: LORATADINE 10 MG TAB PO SCH (05:47)
--- NOTE | 2019-01-18 06:00 | NUR ---
DR PALAFOX @ BEDSIDE FOR CENTRAL LINE PLACEMENT
--- NOTE | 2019-01-18 06:35 | NUR ---
PT HR 180-200 SUSTAINING, MD JANE AWARE. PT DENIES CP/SOB. WILL CONTINUE TO OBSERVE.
--- NOTE | 2019-01-18 06:50 | NUR ---
NOTIFIED MD ABOUT PT HR 180-200 SUSTAINING SVT. EKG ORDERED BY DR PALAFOX. WILL CONTINUE TO OBSERVE.
[2019-01-18] MEDS: BLOOD GLUCOSE MONITORING 1 DEV DEV FS SCH ×4 (07:30→21:03)
--- NOTE | 2019-01-18 07:30 | NUR ---
RECEIVED PT FROM PM NURSE, PT LETHARGIC, BEDSIDE MONITOR SHOWS SVT 190S. HYPOTENSION. PT HAS IV TO RIGHT AC #18, RIGHT HAND AND LEFT HAD. PT ALSO CENTRAL LINE TO RIGHT IJ ( NOT OK TO USE YET). PT ON D5 0.9 NS AT 70 MLS/HR. PT ON RA, NO S/S OF RESPIRATORY DISTRESS NOTED. ABD SOFT. ABLE TO MOVE ALL THE EXTREMITIES BUT MILD WEAKNESS NOTED. CALL LIGHT IN REACH, INTRODUCED MYSELF, WILL CONTINUE TO MONITOR.
[2019-01-18] MEDS ORDERED: PHENYLEPHRINE 10 MG in NACL 0.9% 250 ML IV PRN (07:35)
[2019-01-18] MEDS ORDERED: ADENOSINE 6 MG/2 ML VIAL IVP SCH (07:40)
--- NOTE | 2019-01-18 08:09 | NUR ---
PATIENT HAS BEEN SCREENED AND CATEGORIZED HIGH NUTRITION RISK. PATIENT WILL BE SEEN WITHIN 1-2 DAYS OF ADMISSION. 01/18/19-01/19/[address]
[2019-01-18] MEDS: INSULIN LISPRO SLIDING SCALE 100 UNITS/ML VIAL SUBQ PRN (08:15)
[2019-01-18] MEDS ORDERED: NACL 0.9% 2,000 ML IV SCH (08:45)
--- NOTE | 2019-01-18 08:47 | NUR ---
DR. PERALTA IN TO CHECK PT. DR. PERALTA VERBALLY ORDERED 2 L 0.9%NS. WILL CARRY OUT.
--- NOTE | 2019-01-18 09:50 | NUR ---
ASSISTED PT TO USE BEDSIDE COMMODE.
--- NOTE | 2019-01-18 10:10 | NUR ---
PT LEFT FOR CT, ACCOMPANIED WITH RN AND TWO FOUR SLIDE MACHINE SETTER.
[2019-01-18 11:20] LABS: FIBRINOGEN 216 mg/dL (200-400)
[2019-01-18] MEDS: PHENYLEPHRINE 40 MG in NACL 0.9% 250 ML IV PRN ×2 (11:20→19:16)
--- NOTE | 2019-01-18 12:24 | NUR ---
US TECH AT BEDSIDE. MOTHER AND FATHER AT BEDSIDE. PT SLEEPING ABLE TO WAKE UP WITH VERBAL STIMULI.
[2019-01-18 12:34] LABS: HEMATOCRIT 35.7 % (36-48); HEMOGLOBIN 11.7 g/dL (12.0-16.0)
[2019-01-18 12:39] LABS: ANION GAP 21.9 (8-16); CARBON DIOXIDE 11.3 mmol/L (21-32); POTASSIUM 4.2 mmol/L (3.5-5.1)
[2019-01-18 12:43] LABS: MAGNESIUM 1.6 mg/dL (1.8-2.4); MEAN CORPUSCULAR HEMOGLOBIN 30 pg (27-31); MEAN CORPUSCULAR HGB CONC 33 g/dL (33-37); MEAN CORPUSCULAR VOLUME 90.6 fL (80-94); PHOSPHORUS 1.3 mg/dL (2.5-4.9); RED BLOOD CELL COUNT(AUTO) 3.94 MIL/uL (4.20-5.40); RED CELL DISTRIBUTION WIDTH 13.9 % (11.6-13.7); WHITE BLOOD COUNT (AUTO) 19.6 K/uL (4.8-10.8)
[2019-01-18] MEDS: PIPER/TAZO 3.375GM/D5W PREMIX 50 ML IV SCH ×2 (13:02→18:10)
[2019-01-18 13:05] LABS: D-DIMER 1860 ng/ml (0-400)
[2019-01-18] MEDS: methylPREDNISolone SS 125 MG/2 ML VIAL IVP SCH ×2 (13:23→21:34)
[2019-01-18 13:27] LABS: LYMPHOCYTES % (MANUAL) 30 % (20-46); MONOCYTES % (MANUAL) 2 % (5-12)
[2019-01-18 13:32] LABS: PLATELET COUNT (AUTO) 193 K/uL (140-450)
--- NOTE | 2019-01-18 14:19 | NUR ---
ASSISTED PT TO BEDSIDE COMMODE, PT VOIDS CLEAR YELLOW URINE 250 CC. AT BEDSIDE.
--- NOTE | 2019-01-18 15:52 | NUR ---
01/18/19 RD INITIAL ASSESSMENT COMPLETED PLEASE REFER TO NUTRITION ASSESSMENT UNDER CARE ACTIVITY FOR ESTIMATED NUTRITIONAL NEEDS. 1. WHEN PATIENT IS MEDICALLY STABLE CONSIDER ADVANCING TO CARDIAC DIET TOLERATED 2. CONSIDER ENSURE QD 3. RD WILL PROVIDE ADDITIONAL NUTRITION EDUCATION ON LOWER CHOLESTEROL AND TRIGLYCERIDE 4. RD TO FOLLOW-UP 2-3 DAYS, HIGH RISK ZHAO GAMING RD
--- NOTE | 2019-01-18 16:02 | NUR ---
PT RESTING QUIETLY IN BED, NO S/S OF RESPIRATORY DISTRESS NOTED. AT BEDSIDE.
--- NOTE | 2019-01-18 16:34 | NUR ---
ASSISTED PT TO USE BEDSIDE COMMODE.
[2019-01-18] MEDS ORDERED: MAG SULF 2000 MG/WATER PREMIX 100 ML IV SCH (17:30)
--- NOTE | 2019-01-18 18:49 | NUR ---
PT IS SITTING IN BED, TALKING WITH FAMILY .
--- NOTE | 2019-01-18 19:15 | NUR ---
RECEIVED PT FROM AM NURSE. PT AT BED, AWAKE WITH FAMILY. A&O X4, PERRLA 3MM, CALM, COOPERATIVE, FOLLOWS COMMANDS, HR ELEVATED AT 149, S1S2 PRESENT, PULSES 2+ BILATERAL UPPER AND LOWER EXTREMITIES, CAP REFILL <3S, NO EDEMA PRESENT, LUNG SOUNDS CLEAR THROUGHOUT, BOWEL SOUNDS ACTIVE IN ALL QUADRANTS, ABDOMEN, SOFT, ROUND, NONDISTENDED, NONTENDER, GENERALIZED WEAKNESS IN ALL EXTREMITIES, PT HAS RIGHT IJ WITH IV FLUIDS RUNNING, NOREPINEPHRINE RUNNING AT 100MCG/HR. SIDERAILS UP X2, HOB AT 30 DEGREES, CALL LIGHT WITHIN REACH. WILL CONTINUE TO MONITOR PT.
[2019-01-18] MEDS ORDERED: NACL 0.9% 2,000 ML IV ONE (19:25)
[2019-01-18] MEDS ORDERED: NACL 0.9% 500 ML IV ONE (19:35)
[2019-01-18] MEDS ORDERED: NACL 0.9% 500 ML IV SCH (20:00)
[2019-01-18] MEDS: ACETAMINOPHEN 325 MG TAB PO PRN (21:13)
--- NOTE | 2019-01-18 21:14 | NUR ---
MEDICATIONS GIVEN. SIDE RAILS UP X2, HOB 30 DEGREES, CALL LIGHT WITHIN REACH. WILL CONTINUE TO MONITOR PT.
[2019-01-18] MEDS ORDERED: POTASSIUM PHOSPHATE 15 MM in NACL 0.9% 250 ML IV SCH (22:00)
--- NOTE | 2019-01-18 23:30 | NUR ---
PT EYES CLOSED, BREATHING REGULARLY. SIDE RAILS UP X2, HOB 30 DEGREES, CALL LIGHT WITHIN REACH. WILL CONTINUE TO MONITOR PT.
[2019-01-19] VITALS (44 sets, daily range): BP systolic 95–141; BP diastolic 45–98
[2019-01-19] MEDS: PIPER/TAZO 3.375GM/D5W PREMIX 50 ML IV SCH ×4 (00:17→17:46)
--- NOTE | 2019-01-19 01:15 | NUR ---
PT AT BED EYES CLOSED, BREATHING REGULARLY. SIDE RAILS UP X2, HOB 30 DEGREES, CALL LIGHT WITHIN REACH. WILL CONTINUE TO MONITOR PT.
[2019-01-19] MEDS: DEXT 5% /NACL 0.9% 1,000 ML IV SCH (02:25)
[2019-01-19] MEDS: PHENYLEPHRINE 40 MG in NACL 0.9% 250 ML IV PRN (02:30)
--- NOTE | 2019-01-19 03:25 | NUR ---
PT EYES CLOSED, BREATHING REGULARLY, SIDE RAILS UP X2, HOB 30 DEGREES, CALL LIGHT WITHIN REACH. WILL CONTINUE TO MONITOR PT.
[2019-01-19] MEDS: methylPREDNISolone SS 125 MG/2 ML VIAL IVP SCH (05:14)
[2019-01-19 06:29] LABS: ANION GAP 21.6 (8-16); CARBON DIOXIDE 15.8 mmol/L (21-32); CREATININE 0.7 mg/dL (0.6-1.3); POTASSIUM 4.4 mmol/L (3.5-5.1)
[2019-01-19 06:32] LABS: MAGNESIUM 2.6 mg/dL (1.8-2.4); PHOSPHORUS 2.3 mg/dL (2.5-4.9)
--- NOTE | 2019-01-19 06:45 | NUR ---
DR. ENRIQUE AT BEDSIDE, UPDATED MD ON PT CONDITION AND ABNORMAL LAB OF SODIUM 157. MD ORDERED TO ADVANCE THE DIET TO REGULAR AND AWAIT ORDERS FOR NEW IV FLUIDS. PT AT STABLE CONDITION AT THIS TIME. WILL CONTINUE TO MONITOR.
[2019-01-19] MEDS ORDERED: NACL 0.45% 1,000 ML IV SCH (06:55)
--- NOTE | 2019-01-19 07:10 | NUR ---
RECEIVED PT REPORT FROM ENGINE ROOM OPERATOR NURSE SARA AT BEDSIDE. PT IS AWAKE, ALERT, OX4. DENIES ANY PAIN. PT IS ABLE TO FOLLOW COMMANDS AND MAKE NEEDS KNOWN, ABLE TO USE THE BEDSIDE COMMODE. PT HAS PULSES 2+ BILATERAL UPPER AND LOWER EXTREMITIES, CAP REFILL <3S, NO EDEMA NOTED. PT HAS HEART RATE 48/MIN, SINUS CASH, ASYMPTOMATIC. WILL NOTIFY MD LATER. LUNG SOUNDS CLEAR THROUGHOUT, BOWEL SOUNDS ACTIVE IN ALL QUADRANTS, ABDOMEN, SOFT, ROUND, NONDISTENDED, NONTENDER, GENERALIZED WEAKNESS IN ALL EXTREMITIES, PT HAS RIGHT IJ TRIPLE LUMEN. DRESSING IS INTACT, CLEAN AND DRY. NS IS RUNNING AT 120ML/HR. PHENYLEPHRINE RUNNING AT 100MCG/HR. SIDERAILS UP X2, HOB AT 30 DEGREES, CALL LIGHT WITHIN REACH. WILL CONTINUE TO MONITOR PT. Addendum: 01/19/19 at 1129 by Jono Medina RN BP STABLE, O2 SAT 100% ON 2L O2 NC.
--- NOTE | 2019-01-19 07:15 | NUR ---
REPORT GIVEN TO AM NURSE FOR CONTINUITY OF CARE. PT STABLE AT THIS TIME.
[2019-01-19] MEDS: BLOOD GLUCOSE MONITORING 1 DEV DEV FS SCH ×4 (08:21→21:13)
--- NOTE | 2019-01-19 08:24 | NUR ---
CALLED [facility], SPOKE WITH DR SHUKLA, NOTIFIED HIM THAT PT'S HEART RATE IS CASH IN THE 40S. NO NEW ORDERS AT THIS TIME.
[2019-01-19 08:31] LABS: HEMOGLOBIN 10.8 g/dL (12.0-16.0); RED BLOOD CELL COUNT(AUTO) 3.62 MIL/uL (4.20-5.40); WHITE BLOOD COUNT (AUTO) 15.1 K/uL (4.8-10.8)
[2019-01-19 08:32] LABS: HEMATOCRIT 32.7 % (36-48); MEAN CORPUSCULAR HEMOGLOBIN 30 pg (27-31); MEAN CORPUSCULAR HGB CONC 33 g/dL (33-37); MEAN CORPUSCULAR VOLUME 90.1 fL (80-94)
[2019-01-19 08:34] LABS: RED CELL DISTRIBUTION WIDTH 14.5 % (11.6-13.7)
[2019-01-19 08:35] LABS: PLATELET COUNT (AUTO) 157 K/uL (140-450)
[2019-01-19 08:36] LABS: BASOPHILS % (AUTO) 0.1 % (0.0-2.0); LYMPHOCYTES # (AUTO) 1.2 K/uL (2.5-16.5); LYMPHOCYTES % (AUTO) 7.8 % (20.5-51.1); MONOCYTES # (AUTO) 0.8 K/uL (0.8-1.0); NEUTROPHILS # (AUTO) 13.1 K/uL (1.8-7.7); NEUTROPHILS % (AUTO) 87.1 % (42.2-75.2)
--- NOTE | 2019-01-19 08:40 | NUR ---
DR PORTILLO CAME, TALKED TO PT.
--- NOTE | 2019-01-19 09:01 | NUR ---
DC'D PHENYLEPHRINE, PER DR PORTILLO ORDER. PT IS NOT ON ANY DRIP AT THIS TIME. IVF 1/2 NS RUNNING AT 80ML/HR.
--- NOTE | 2019-01-19 09:19 | NUR ---
DR SCHWARZ IS HERE TALKED TO PT.
[2019-01-19] MEDS ORDERED: DEXT 5% / NACL 0.45% 1,000 ML IV SCH (09:25)
[2019-01-19] MEDS: FAMOTIDINE 20 MG/2 ML VIAL IV SCH ×2 (09:32→21:17)
[2019-01-19] MEDS: LORATADINE 10 MG TAB PO SCH (09:32)
[2019-01-19] MEDS: INSULIN LISPRO SLIDING SCALE 100 UNITS/ML VIAL SUBQ PRN ×3 (09:52→21:15)
--- NOTE | 2019-01-19 10:10 | NUR ---
PT FINISHED BREAKFAST. NO S/S OF ANY DISTRESS.
--- NOTE | 2019-01-19 11:29 | NUR ---
HELPED PT SAT IN THE CHAIR, PT WATCHING TV, NO DISTRESS NOTED.
[2019-01-19] MEDS: methylPREDNISolone SS 40 MG/ML VIAL IVP SCH ×2 (12:14→21:17)
--- NOTE | 2019-01-19 12:25 | NUR ---
PT EATING DINNER, ON ROOM AIR, NO DISTRESS NOTED. O2 SAT 98%.
[2019-01-19 13:51] LABS: ANION GAP 13.8 (8-16); CARBON DIOXIDE 18.4 mmol/L (21-32); CREATININE 0.6 mg/dL (0.6-1.3); POTASSIUM 4.2 mmol/L (3.5-5.1)
--- NOTE | 2019-01-19 14:29 | NUR ---
VISITORS LEFT, PT TALKING ON HER PHONE. NO DISTRESS NOTED. VITALS STABLE, ON ROOM AIR.
[2019-01-19] MEDS: ACETAMINOPHEN 325 MG TAB PO PRN (14:34)
[2019-01-19] MEDS: NACL 0.9% 1,000 ML IV SCH (15:29)
[2019-01-19] MEDS ORDERED: CALCIUM CARB/VIT-D 500 MG/200 IU 1 TAB PO SCH (15:30)
--- NOTE | 2019-01-19 15:45 | NUR ---
PT IS BACK TO BED, GETTING SOME REST. NO DISTRESS ON ROOM AIR, LAYING LEFT LATERAL. O2 SAT 98%. Addendum: 01/19/19 at 1658 by Jono Medina RN RR 16
[2019-01-19 18:30] LABS: ANTI-NUCLEAR ANTIBODY,DIRECT Positive (Negative)
--- NOTE | 2019-01-19 19:30 | NUR ---
RECEIVED REPORT FROM MORNING RN, LYNNE/LUI, FOR CONTINUITY OF CARE. VS STABLE AT THIS TIME. PT AWAKE, ALERT AND ORIENTED X4. PT ABLE TO MAKE NEEDS KNOWN AND FOLLOW COMMANDS. PT DENIES ANY DISCOMFORT AT THIS TIME. PERRL. AFEBRILE. LUNG SOUNDS CLEAR. PT IN ROOM AIR. DENIES ANY DIFFICULTY BREATHING. S1+S2. PULSES ARE PALPABLE. SR ON MONITOR. PT STILL ON CVP MONITORING, BUT CVP LINE IS NOT READING. ABDOMEN ROUND, SOFT AND NONDISTENDED. BS ACTIVE IN ALL QUADRANT. PT CONTINENT OF BOTH BLADDER AND BOWEL. PT HAS RIGHT IJ CENTRAL LINE. PT HAS NS RUNNING AT 50ML/HR. ALL SAFETY PRECAUTIONS ARE IN PLACE. BED AT LOWEST POSSIBLE POSITION.
--- NOTE | 2019-01-19 20:07 | NUR ---
CALLED DR. MORALES TO ASK IF CVP LINE IS STILL NEEDED AT THIS TIME. PER DR. MORALES, OKAY TO D/C CVP MONITORING
--- NOTE | 2019-01-19 22:00 | NUR ---
DR. MORALES IN THE UNIT. INFORMED HIM THAT DR. BRADY WANTED THE IV FLUIDS TO BE DECREASED TO 50ML/HR.
[2019-01-19] MEDS: HYDROcodone/APAP 5/325 MG 1 TAB TAB PO PRN (22:07)
--- NOTE | 2019-01-19 23:44 | NUR ---
PT DENIES ANY DISCOMFORT AT THIS TIME. STATES THAT SHE IS SLEEPY NOW AND WILL TRY TO SLEEP. ACCORDING TO HER, THE PAIN MEDICATION IS FINALLY WORKING.
[2019-01-20] VITALS: BP 97/54
[2019-01-20] MEDS: PIPER/TAZO 3.375GM/D5W PREMIX 50 ML IV SCH ×5 (00:01→23:52)
--- NOTE | 2019-01-20 01:51 | NUR ---
VS STABLE. SR ON MONITOR. BP WNL. PT EYES ARE CLOSED AT THIS TIME. RESPIRATIONS ARE EVEN AND UNLABORED. PT DOES NOT APPEAR TO BE EXPERIENCING ANY DISCOMFORT. HOB AT 30 DEGREES. ALL SAFETY PRECAUTIONS ARE IN PLACE. WILL CONTINUE TO MONITOR PT.
--- NOTE | 2019-01-20 07:30 | NUR ---
Received patient on bed.no co pain nor any discomfort.pt uses the bsc with assistance ,Right ij central line intact and patent.Sinus gerardo on the monitor.
[2019-01-20 07:58] LABS: BASOPHILS % (AUTO) 0.4 % (0.0-2.0); HEMATOCRIT 32.6 % (36-48); HEMOGLOBIN 10.8 g/dL (12.0-16.0); LYMPHOCYTES % (AUTO) 22.8 % (20.5-51.1); MEAN CORPUSCULAR HEMOGLOBIN 30 pg (27-31); MEAN CORPUSCULAR HGB CONC 33 g/dL (33-37); MEAN CORPUSCULAR VOLUME 90.1 fL (80-94); MONOCYTES # (AUTO) 0.6 K/uL (0.8-1.0); NEUTROPHILS % (AUTO) 69.8 % (42.2-75.2); RED BLOOD CELL COUNT(AUTO) 3.62 MIL/uL (4.20-5.40); RED CELL DISTRIBUTION WIDTH 14.5 % (11.6-13.7); WHITE BLOOD COUNT (AUTO) 8.6 K/uL (4.8-10.8)
[2019-01-20 08:00] VITALS: BP 120/80
[2019-01-20] MEDS: NACL 0.9% 1,000 ML IV SCH (08:00)
[2019-01-20] MEDS: methylPREDNISolone SS 40 MG/ML VIAL IVP SCH (08:22)
[2019-01-20] MEDS: SODIUM PHOS / POTASSIUM PHOS 1 PKT PDR PO SCH (08:23)
[2019-01-20 08:25] LABS: ANION GAP 15.3 (8-16); CARBON DIOXIDE 19.9 mmol/L (21-32); CREATININE 0.6 mg/dL (0.6-1.3); POTASSIUM 4.2 mmol/L (3.5-5.1)
[2019-01-20 08:34] LABS: MAGNESIUM 2.5 mg/dL (1.8-2.4)
[2019-01-20] MEDS: LORATADINE 10 MG TAB PO SCH (08:34)
[2019-01-20] MEDS: CALCIUM CARB/VIT-D 500 MG/200 IU 1 TAB PO SCH (08:35)
[2019-01-20] MEDS: FAMOTIDINE 20 MG/2 ML VIAL IV SCH ×2 (08:38→20:58)
[2019-01-20] MEDS: BLOOD GLUCOSE MONITORING 1 DEV DEV FS SCH ×4 (08:38→21:06)
[2019-01-20 08:48] LABS: PLATELET COUNT (AUTO) 182 K/uL (140-450)
[2019-01-20 10:00] VITALS: BP 134/86
[2019-01-20] MEDS: INSULIN LISPRO SLIDING SCALE 100 UNITS/ML VIAL SUBQ PRN (11:39)
[2019-01-20 12:00] VITALS: BP 128/80
--- NOTE | 2019-01-20 12:00 | NUR ---
RESTING IN BED. SB TO SR ON MONITOR. NO CHANGE IN CONDITION. RIJ IN PLACE INTACT. ON O2 AT 2 LTR/MIN.
--- NOTE | 2019-01-20 15:15 | NUR ---
Report given to Tegan Hall .
--- NOTE | 2019-01-20 15:16 | NUR ---
RECEIVED TELEPHONE REPORT FROM BAR HOST ROSE.
--- NOTE | 2019-01-20 15:28 | NUR ---
PT TRANSFERRED TO TELE UNIT ACCOMPANIED BY MARY ROSE. BELONGINGS TAKEN WITH PT. Addendum: 01/20/19 at 1647 by Marisabel Sanabria RN RN at the bedside upon transfer.no co pain nor any discomfort.vss.
--- NOTE | 2019-01-20 15:30 | NUR ---
PT FROM ICU ARRIVED TO THE UNIT. PT STABLE, AA0X4. NO SIGNS OF DISTRESS NOTED. DENIES PAIN OR SOB. ON 2L 02 VIA NC. NO REDNESS, SWELLING, OR INFLAMMATION NOTED ON IV SITE. PT AMBULATED TO THE BED WITH STEADY GAIT. CALL LUCIA WITHIN REACH. BED IN LOWEST POSITION. SAFETY MEASURES IN PLACE. PLAN OF CARE REVIEWED. AT THE BEDSIDE.
[2019-01-20 16:00] VITALS: BP 137/74
--- NOTE | 2019-01-20 17:33 | NUR ---
ADMINISTERED SCHEDULED MEDICATION, PT TOLERATED WELL. NO OTHER NEEDS AT THIS TIME. FAMILY AT THE BEDSIDE.
--- NOTE | 2019-01-20 19:10 | NUR ---
ENDORSED PT TO MARY ALEMAN FOR CONTINUITY OF CARE. PT STABLE.
--- NOTE | 2019-01-20 19:15 | NUR ---
RECEIVED PT ON BED TALKING TO FAMILY AT BEDSIDE, AAOX4, ABLE TO MAKE NEEDS KNOWN, VITAL SIGNS STABLE, DENIES ANY PAIN, SAT-98% ON O2 AT 2L NC, NO SOB NOTED, IVF INFUSING WELL VIA RT IJ TRIPLE LUMEN CVP LINE, DRESSING DRY AND INTACT, PLAN OF CARE DISCUSSED, SAFETY MEASURES IN PLACE, CALL LIGHT WITHIN REACH.
[2019-01-20 20:00] VITALS: BP 102/55
--- NOTE | 2019-01-20 20:30 | NUR ---
PT AMBULATED ON THE HALLWAY ACCOMPANIED BY , TOLERATED WELL.
--- NOTE | 2019-01-20 21:00 | NUR ---
BLOOD SUGAR CHECKED WITH 131 RESULT, NO COVERAGE NEEDED, DUE MEDS ADMINISTERED, ALL NEEDS ATTENDED. Addendum: 01/21/19 at 0228 by Catalino Pena RN PT REFUSED HEPARIN SUB-Q, RISK AND BENEFITS EXPLAINED BUT PT WANT TO SKIP TONIGHT'S DOSE AND START AGAIN TOMORROW.
--- NOTE | 2019-01-20 21:40 | NUR ---
SEEN PT SITTING ON BEDSIDE CHAIR AFTER AMBULATING TO BR, VOIDED FREELY, SAT-98% ON ROOM AIR, NO SOB NOTED, PT WENT BACK TO BED AND REQUESTED TO BE PUT BACK ON O2, PT STATED THAT SHE BREATHS BETTER WHEN UP AND ABOUT AND WALKING COMPARE TO WHEN SHE IS LYING DOWN ON BED, HOB ELEVATED TO SEMI-FOWLERS POSITION, MONITORED CLOSELY.
[2019-01-21] VITALS (7 sets, daily range): BP systolic 107–133; BP diastolic 61–90
--- NOTE | 2019-01-21 | NUR ---
PT AWAKE, EASILY AROUSABLE, VITAL SIGNS STABLE, NO SOB NOTED, DENIES ANY PAIN, DUE ZOSYN IVPB ADMINISTERED, CONTINUE TO MONITOR CLOSELY.
--- NOTE | 2019-01-21 01:50 | NUR ---
PT HR 44-48 BPM ON TELE, PT SLEEPING, EASILY AROUSABLE TO VERBAL STIMULI, HR WENT UP IN THE 50'S WHEN AWAKE, DENIES ANY PAIN, NO SOB NOTED, MONITORED CLOSELY.
--- NOTE | 2019-01-21 04:00 | NUR ---
PT SLEEPING, EASILY AROUSABLE, VITAL SIGNS STABLE, SB-SR ON TELE, DENIES ANY PAIN, NO SOB NOTED, IVF INFUSING WELL, MONITORED CLOSELY.
--- NOTE | 2019-01-21 06:05 | NUR ---
AM LABS DRAWN VIA RT IJ CVP LINE WITH GOOD BLOOD RETURN, BLOOD SUGAR CHECKED WITH 65 RESULT, APPLE JUICE AND FRUIT PROVIDED, ASYMPTOMATIC, DUE MEDS ADMINISTERED, TOLERATED WELL.
[2019-01-21] MEDS: SODIUM PHOS / POTASSIUM PHOS 1 PKT PDR PO SCH (06:06)
[2019-01-21] MEDS: PIPER/TAZO 3.375GM/D5W PREMIX 50 ML IV SCH ×4 (06:07→23:21)
--- NOTE | 2019-01-21 06:38 | NUR ---
PT AMBULATED TO BED WITH STEADY GAIT, STATED VOIDED AND BM WITH SOFT STOOL, BACK TO BED WITH NO DISTRESS, DR SAMPSON CAME IN AND EXAMINED THE PT.
--- NOTE | 2019-01-21 06:59 | NUR ---
BLOOD SUGAR RECHECKED WITH 94 RESULT, PT EATING FRUIT CUP AT THIS TIME, NO DISTRESS NOTED, MONITORED CLOSELY.
[2019-01-21] MEDS: BLOOD GLUCOSE MONITORING 1 DEV DEV FS SCH ×4 (07:00→20:51)
--- NOTE | 2019-01-21 07:22 | NUR ---
PT AWAKE, NO DISTRESS NOTED, BEDSIDE REPORT GIVEN TO RN RONNELL FOR CONTINUITY OF CARE.
--- NOTE | 2019-01-21 07:25 | NUR ---
RECEIVED HANDOFF REPORT FROM CLOTH BEAMER NURSE PT IS AWAKE IN BED PT IS STABLE AND IN NO APPARENT DISTRESS ALL SAFETY MEASURES ARE IN PLACE. WILL CONTINUE TO MONITOR.
[2019-01-21 07:27] LABS: BASOPHILS % (AUTO) 0.2 % (0.0-2.0); EOSINOPHILS # (AUTO) 0.1 K/uL (0-0.4); EOSINOPHILS % (AUTO) 0.6 % (0.0-4.0); HEMATOCRIT 31.4 % (36-48); HEMOGLOBIN 10.6 g/dL (12.0-16.0); LYMPHOCYTES # (AUTO) 3.4 K/uL (2.5-16.5); LYMPHOCYTES % (AUTO) 32.6 % (20.5-51.1); MEAN CORPUSCULAR HEMOGLOBIN 30 pg (27-31); MEAN CORPUSCULAR HGB CONC 34 g/dL (33-37); MEAN CORPUSCULAR VOLUME 89.6 fL (80-94); MONOCYTES # (AUTO) 0.9 K/uL (0.8-1.0); MONOCYTES % (AUTO) 8.6 % (1.7-9.3); NEUTROPHILS # (AUTO) 6.1 K/uL (1.8-7.7); RED BLOOD CELL COUNT(AUTO) 3.51 MIL/uL (4.20-5.40); RED CELL DISTRIBUTION WIDTH 14.4 % (11.6-13.7); WHITE BLOOD COUNT (AUTO) 10.6 K/uL (4.8-10.8)
[2019-01-21 07:47] LABS: ANION GAP 13.3 (8-16); CARBON DIOXIDE 23.2 mmol/L (21-32); CREATININE 0.6 mg/dL (0.6-1.3); POTASSIUM 3.5 mmol/L (3.5-5.1)
[2019-01-21 07:55] LABS: MAGNESIUM 2.1 mg/dL (1.8-2.4); PHOSPHORUS 2.2 mg/dL (2.5-4.9)
[2019-01-21] MEDS: CALCIUM CARB/VIT-D 500 MG/200 IU 1 TAB PO SCH (09:37)
[2019-01-21] MEDS: LORATADINE 10 MG TAB PO SCH (09:37)
[2019-01-21] MEDS: FAMOTIDINE 20 MG/2 ML VIAL IV SCH ×2 (09:38→20:51)
[2019-01-21 09:44] LABS: PLATELET COUNT (AUTO) 190 K/uL (140-450)
--- NOTE | 2019-01-21 09:45 | NUR ---
PT REFUSED HEPARIN. PT IS AMBULATORY
[2019-01-21] MEDS ORDERED: FUROSEMIDE 40 MG/4 ML VIAL IVP SCH (10:09)
--- NOTE | 2019-01-21 11:02 | NUR ---
01/21/19 RD FOLLOW UP COMPLETED PLEASE REFER TO NUTRITION PROGRESS NOTE UNDER CARE ACTIVITY FOR ESTIMATED NUTRITION NEEDS. RD RECOMMENDATIONS: 1.CONTINUE ON REGULAR DIET TOLERATED. 2.RDN AND NURSING TO CONTINUE TO ENCOURAGE PO INTAKES. 3. IF PO INTAKES DO NOT IMPROVE TO > 50% OVER THE NEXT 2-3 DAYS, CONSIDER STARTING ONS ENSURE ENLIVE WITH MEALS TID AGAIN. THIS WILL PROVIDE AN ADDITIONAL 1050 KCAL AND 60 GM PROTEIN TO HELP MEET NEEDS. (PT DECLINED ORAL NUTRITON SUPPLEMENT AT THIS TIME.) 4. RD TO FOLLOW-UP 2-3 DAYS, HIGH RISK. SABRINA BURTON, MS, RDN
--- NOTE | 2019-01-21 11:25 | NUR ---
FREQUENT ROUNDING ON PT PT IS STABLE AND IN NO APPARENT DISTRESS. ALL SAFETY MEASURES ARE IN PLACE. PT IS STABLE AND IN NO APPARENT DISTRESS. WILL CONTINUE TO MONITOR.
[2019-01-21] MEDS: HYDROcodone/APAP 5/325 MG 1 TAB TAB PO PRN ×2 (11:55→20:51)
--- NOTE | 2019-01-21 12:30 | NUR ---
PT FAMILY AT BEDSIDE PT IS SITTING IN CHAIR PT IS STABLE AND AMBULATING TO THE RESTROOM WITH A STEADY GAIT PT IS TOLERATING SITTING UP WITHOUT NASAL CANULA. PT IS STABLE AND IN NO APPARENT DISTRESS. PT HAS NO COMPLAINTS OF SHORTNESS OF BREATH. ALL SAFETY MEASURES ARE IN PLACE WILL CONTINUE TO MONITOR.
--- NOTE | 2019-01-21 13:05 | NUR ---
FREQUENT ROUNDING PT IS AWAKE IN CHAIR. PT IS STABLE AND APPEARS IN NO APPARENT DISTRESS. ALL SAFETY MEASURES ARE IN PLACE. WILL CONTINUE TO MONITOR.
--- NOTE | 2019-01-21 15:55 | NUR ---
FREQUENT ROUNDING PT IS AWAKE IN BED PT IS STABLE AND IN NO APPARENT DISTRESS ALL SAFETY MEASURES ARE IN PLACE WILL CONTINUE TO MONITOR.
--- NOTE | 2019-01-21 16:53 | NUR ---
FINGER STICK GLUCOSE 83 NO INSULIN NEEDED PER SLIDING SCALE. PT IS STABLE AND IN NO APPARENT DISTRESS. ALL SAFETY MEASURES ARE IN PLACE. WILL CONTINUE TO MONITOR.
--- NOTE | 2019-01-21 19:23 | NUR ---
ENDORSED PT TO POKER DEALER RN PT IS AWAKE AMBULATING THE UNIT WITH FAMILY PT APPEARS STABLE AND IN NO APPARENT DISTRESS. ALL SAFETY MEASURES ARE IN PLACE.
--- NOTE | 2019-01-21 19:30 | NUR ---
RECEIVED BEDSIDE REPORT FROM MARY PARRISH, PATIENT WANTED TO AMBULATE AROUND ESTRELLA WITH PARENTS, PLACED BLUE CAPS ON RIGHT CENTRAL LINE.WILL CONTINUE TO MONITOR.
--- NOTE | 2019-01-21 20:00 | NUR ---
PATIENT SITTING BACK ON BED, V/S TAKEN, PATIENT DENIES PAIN AT THIS TIME, TRIPLE LUMEN RIGHT CENTRAL LINE, DRESSING CLEAN AND INTACT. CLEANED SITE WITH CHLORHEXIDINE WIPES, EDUCATION PROVIDED, V/S STABLE ON RA, PATIENT REQUESTED TO BE DISCONNECTED FROM NS TO HAVE MORE ROOM TO WALK. BG 123 NO COVERAGE NEEDED.
--- NOTE | 2019-01-21 20:59 | NUR ---
DUE PEPCID GIVEN PATIENT REFUSED HEPARIN EDUCATION PROVIDED REGARDING ELEVATED D-DIMER. PATIENT C/O PAIN GAVE NORCO.
[2019-01-21] MEDS: NACL 0.9% 1,000 ML IV SCH (23:21)
--- NOTE | 2019-01-21 23:22 | NUR ---
DUE ZOSYN GIVEN
--- NOTE | 2019-01-22 02:24 | NUR ---
SLEEPING IN BED, ON RA, NO SIGNS OF ACUTE DISTRESS.
[2019-01-22 04:00] VITALS: BP 125/80
--- NOTE | 2019-01-22 04:21 | NUR ---
PATIENT SLEEPING, CALL LIGHT WITHIN REACH.
[2019-01-22] MEDS: SODIUM PHOS / POTASSIUM PHOS 1 PKT PDR PO SCH (05:38)
[2019-01-22] MEDS: PIPER/TAZO 3.375GM/D5W PREMIX 50 ML IV SCH ×2 (05:38→12:38)
[2019-01-22] MEDS: BLOOD GLUCOSE MONITORING 1 DEV DEV FS SCH ×3 (05:38→16:47)
--- NOTE | 2019-01-22 05:41 | NUR ---
DUE MEDICATIONS GIVEN, BG 72
--- NOTE | 2019-01-22 07:18 | NUR ---
ENDORSED PATIENT TO DAY SHIFT NURSE, PATIENT STABLE.
--- NOTE | 2019-01-22 07:38 | NUR ---
RECEIVED HANDOFF REPORT FROM STRAIGHTENING PRESS OPERATOR NURSE. PT IS STABLE AND IN NO APPARENT DISTRESS ALL SAFETY MEASURES ARE IN PLACE. WILL CONTINUE TO MONITOR.
[2019-01-22 08:00] VITALS: BP 124/64
[2019-01-22] MEDS ORDERED: LEVO750T2 PO (09:05)
[2019-01-22] MEDS: CALCIUM CARB/VIT-D 500 MG/200 IU 1 TAB PO SCH (09:14)
[2019-01-22] MEDS: LORATADINE 10 MG TAB PO SCH (09:14)
[2019-01-22] MEDS: FAMOTIDINE 20 MG/2 ML VIAL IV SCH (09:15)
--- NOTE | 2019-01-22 11:30 | NUR ---
PT REFUSED FINGERSTICK WILL MONITOR PT FOR SIGNS OF HYPOGLYCEMIA AND HYPERGLYCEMIA
[2019-01-22 12:00] VITALS: BP 107/68
--- NOTE | 2019-01-22 13:25 | NUR ---
FREQUENT ROUNDING ON PT IS STABLE AND IN NO APPARENT DISTRESS. ALL SAFETY MEASURES ARE IN PLACE. WILL CONTINUE TO MONITOR
[2019-01-22 16:00] VITALS: BP 126/68
--- NOTE | 2019-01-22 16:35 | NUR ---
PT REFUSED FINGERSTICK GLUCOSE PT STATED HURTS HER FINGERS AND THAT SHE IS NOT DIABETIC. PT STATED HER BLOOD SUGAR HAS BEEN WNL THIS WHOLE TIME AND SHE DOES NOT WANT FINGERSTICK GLUCOSE.
--- NOTE | 2019-01-22 16:50 | NUR ---
REMOVED PT CENTRAL LINE PER DR ORDERS. USED STERILE TECHNIQUE. PT TOLERATED PROCEDURE WELL. CENTRAL LINE TIP INTACT. MINIMAL BLEEDING AT THE SITE. PT STATED NO PAIN.
[2019-01-22 17:52] VITALS: BP 124/64
--- NOTE | 2019-01-22 18:20 | NUR ---
REMOVED PT ID BAND. REMOVED TELE MONITOR. PT STABLE AND ESCORTED OFF THE UNIT WITH FAMILY. PT SIGNED ALL DISCHARGE PAPER WORK AND I ANSWERED ALL THE QUESTIONS FOR THE PT. INFORMED PT OF MEDICATIONS AND PRESCRIPTIONS AND WHERE HER PRESCRIPTIONS WERE SENT. PT WAS STABLE AND IN NO APPARENT DISTRESS.
[2019-01-24 20:03] LABS: ANTI-NUCLEAR ANTIBODY TITER Positive (Negative)
== END 2019-01-22 18:20 | disposition home or self-care (01) | DRG 871 ==
LOC: MED 23:58 → MTU 01-18 03:07 → MIC 01-18 04:15 → MTU 01-20 15:35
PROVIDERS: ADMIT General Practice; ATTEND General Practice
PROC: 02HV33Z Insertion of Infusion Device into Superior Vena Cava, Percutaneous Approach (ICD-10-PCS; principal; 2019-01-18)
PROC: B548ZZA Ultrasonography of Superior Vena Cava, Guidance (ICD-10-PCS; 2019-01-18)
DX: A41.9 Sepsis, unspecified organism (principal); R65.21 Severe sepsis with septic shock; J96.01 Acute respiratory failure with hypoxia; T88.6XXA Anaphylactic reaction due to adverse effect of correct drug or medicament properly administered, initial encounter; N39.0 Urinary tract infection, site not specified; E87.0 Hyperosmolality and hypernatremia; T37.0X5A Adverse effect of sulfonamides, initial encounter; D69.6 Thrombocytopenia, unspecified; E66.9 Obesity, unspecified; N20.0 Calculus of kidney; N83.201 Unspecified ovarian cyst, right side; E83.39 Other disorders of phosphorus metabolism; E86.0 Dehydration; Z68.36 Body mass index [BMI] 36.0-36.9, adult; Z71.3 Dietary counseling and surveillance; Z82.49 Family history of ischemic heart disease and other diseases of the circulatory system; Z80.0 Family history of malignant neoplasm of digestive organs; Z87.442 Personal history of urinary calculi
CPT/HCPCS: 36415; 36600; 71045; 71260; 76700; 80048; 80053; 80305; 81001; 82150; 82553; 82803; 82948; 83605; 83690; 83735; 83880; 84100; 84134; 84484; 85007; 85025; 85379; 85384; 85610; 85730; 86038; 87040; 87081; 87086; 93005; 93970; 96365; 96375; 99285; J0153; J0696; J1200; J1642; J1644; J1815; J1940; J2060; J2370; J2405; J2543; J2920; J2930; J3475; J3490; J7030; J7042; J7060; Q0092; Q9967

== ENCOUNTER 2021-11-25 12:34 | Emergency (ER) | payer BC ==
[~2021-11-25] VITALS: Ht 162.6 cm; Wt 84.8 kg
[~2021-11-25 12:34] MED LIST changes: -LEVO500T2 PO; +LEVO750T2 PO
[2021-11-25 12:41] VITALS: BP 143/78
--- NOTE | 2021-11-25 13:45 | NUR ---
PT AMBULATED TO BED 6 WITH STEADY GAIT
--- NOTE | 2021-11-25 13:47 | NUR ---
46 Y/O FEMALE BIB C/O DIZZINESS AND VAGINAL BLEEDING X1WEEK. STATED THAT THEY CHANGE THEIR TAMPON AND PAD EVERY 5 MINUTES. DENIES PAIN, N/V/D. STATED THEY FEEL "WEAK AND TIRED". RESPIRATIONS EVEN AND UNLABORED. BED IN LOWEST POSITION. PMH; DENIES ALLERGIES:LACTOSE, SULFAMETHOXAZOLE, TRIMETHOPRIM
[2021-11-25] MEDS ORDERED: NACL 0.9% 1,000 ML IV ONE (14:35)
--- NOTE | 2021-11-25 14:44 | NUR ---
ULTRASOUND AT BEDSIDE
--- NOTE | 2021-11-25 14:48 | NUR ---
WALKED BLOOD TO LAB, HANDED TO KELVIN
[2021-11-25 14:58] LABS: BASOPHILS # (AUTO) 0.1 K/uL (0.00-0.22); BASOPHILS % (AUTO) 0.8 % (0.0-2.0); EOSINOPHILS # (AUTO) 0.1 K/uL (0-0.4); HEMATOCRIT 24.8 % (36-48); HEMOGLOBIN 8.2 g/dL (12.0-16.0); LYMPHOCYTES # (AUTO) 2.3 K/uL (2.5-16.5); LYMPHOCYTES % (AUTO) 26.6 % (20.5-51.1); MEAN CORPUSCULAR HEMOGLOBIN 29 pg (27-31); MEAN CORPUSCULAR HGB CONC 33 g/dL (33-37); MEAN CORPUSCULAR VOLUME 87.9 fL (80-94); MONOCYTES # (AUTO) 0.7 K/uL (0.8-1.0); MONOCYTES % (AUTO) 8.2 % (1.7-9.3); NEUTROPHILS # (AUTO) 5.5 K/uL (1.8-7.7); NEUTROPHILS % (AUTO) 63.4 % (42.2-75.2); PLATELET COUNT (AUTO) 54 K/uL (140-450); RED BLOOD CELL COUNT(AUTO) 2.82 MIL/uL (4.20-5.40); WHITE BLOOD COUNT (AUTO) 8.6 K/uL (4.8-10.8)
--- NOTE | 2021-11-25 15:04 | NUR ---
PT AMBULATED TO BATHROOM WITH STEADY GAIT
[2021-11-25 15:33] LABS: ALBUMIN 3.1 g/dL (3.4-5.0); ANION GAP 12.8 (8-16); CREATININE 0.4 mg/dL (0.6-1.3); TOTAL BILIRUBIN 1.5 mg/dL (0.0-1.0)
[2021-11-25 15:34] LABS: POTASSIUM 4.8 mmol/L (3.5-5.1)
[2021-11-25 16:06] VITALS: BP 111/49
--- NOTE | 2021-11-25 16:18 | NUR ---
DR BURR AT BEDSIDE
--- NOTE | 2021-11-25 16:35 | NUR ---
Patient discharged with v/s stable. Written and verbal after care instructions given ABOUT MENORRHAGIA and explained. Patient verbalized understanding. Ambulatory with steady gait. All questions addressed prior to discharge. Advised to follow up with PMD.
== END 2021-11-25 16:35 | disposition home or self-care (01) ==
LOC: MED 12:34
DX: N92.0 Excessive and frequent menstruation with regular cycle (principal); D64.9 Anemia, unspecified; D69.6 Thrombocytopenia, unspecified; N39.0 Urinary tract infection, site not specified; R55 Syncope and collapse; R06.02 Shortness of breath; R00.2 Palpitations; Z79.2 Long term (current) use of antibiotics; Z88.2 Allergy status to sulfonamides; Z88.1 Allergy status to other antibiotic agents; Z91.011 Allergy to milk products
CPT/HCPCS: 36415; 76830; 80053; 81002; 81025; 85025; 93005; 96360; 96361; 99285; J7030; Q0092

== ENCOUNTER 2022-09-13 11:15 | Emergency (ER) | payer BC ==
[~2022-09-13] VITALS: Ht 162.6 cm; Wt 90.7 kg
[2022-09-13 11:20] VITALS: BP 150/131
--- NOTE | 2022-09-13 12:20 | NUR ---
47F PRESENTS TO ED WITH C/O RIGHT SIDED PELVIC PAIN X1 DAY. PT REPORTS PAIN STARTED NEAR UMBILICUS YESTERDAY, THIS MORNING PAIN IS NOW RLQ/PELVIC REGION. PT REPORTS A CONSTANT, CRAMPING LIKE, 7/10 NON RADIATING PAIN THAT WORSENS WITH MOVEMENT. PT TOOK IBUPROFEN YESTERDAY WITH NO RELIEF, DENIES TAKING TODAY. PT DENIES N/V/D, FEVERS, CHILLS OR UTI SYMPTOMS.
--- NOTE | 2022-09-13 12:26 | NUR ---
URINE HANDED TO TECHNICAL TRAINING MANAGER
[2022-09-13 12:41] LABS: BASOPHILS # (AUTO) 0.1 K/uL (0.00-0.22); BASOPHILS % (AUTO) 0.7 % (0.0-2.0); EOSINOPHILS # (AUTO) 0.1 K/uL (0-0.4); EOSINOPHILS % (AUTO) 1.3 % (0.0-4.0); HEMATOCRIT 41.3 % (36-48); LYMPHOCYTES # (AUTO) 2.4 K/uL (2.5-16.5); LYMPHOCYTES % (AUTO) 33.7 % (20.5-51.1); MEAN CORPUSCULAR HEMOGLOBIN 31 pg (27-31); MEAN CORPUSCULAR HGB CONC 34 g/dL (33-37); MEAN CORPUSCULAR VOLUME 90.4 fL (80-94); MONOCYTES # (AUTO) 0.6 K/uL (0.8-1.0); MONOCYTES % (AUTO) 8.6 % (1.7-9.3); NEUTROPHILS # (AUTO) 3.9 K/uL (1.8-7.7); NEUTROPHILS % (AUTO) 55.7 % (42.2-75.2); PLATELET COUNT (AUTO) 113 K/uL (140-450); RED BLOOD CELL COUNT(AUTO) 4.57 MIL/uL (4.20-5.40); RED CELL DISTRIBUTION WIDTH 13.9 % (11.6-13.7); WHITE BLOOD COUNT (AUTO) 7.1 K/uL (4.8-10.8)
[2022-09-13 12:43] LABS: APPEARANCE,URINE CLEAR (CLEAR); BILIRUBIN,URINE NEGATIVE (NEGATIVE); BLOOD, URINE 1+ (NEGATIVE); COLOR,URINE YELLOW (YELLOW); LEUKOCYTE ESTERASE ,URINE TRACE (NEGATIVE); NITRITE, URINE NEGATIVE (NEGATIVE); UGLUCOSE NEGATIVE (NEGATIVE)
[2022-09-13 13:03] LABS: WBC,URINE 0-5 /HPF (0-5)
[2022-09-13 13:04] LABS: OTHER CASTS, URINE None Seen /LPF (None Seen)
[2022-09-13 13:06] LABS: ALBUMIN 4.1 g/dL (3.4-5.0); ANION GAP 11.5 (8-16); CREATININE 0.6 mg/dL (0.6-1.3); POTASSIUM 3.5 mmol/L (3.5-5.1); TOTAL BILIRUBIN 0.4 mg/dL (0.0-1.0)
[2022-09-13] MEDS ORDERED: HYDROcodone/APAP 5/325 MG 1 TAB TAB PO ONE (13:50)
[2022-09-13] MEDS ORDERED: KETOROLAC 15 MG/ML VIAL IM ONE (14:20)
--- NOTE | 2022-09-13 16:27 | NUR ---
PT RETURN FROM CT SCAN
[2022-09-13] MEDS ORDERED: ACET-8905 PO (17:30)
[2022-09-13] MEDS ORDERED: IBUP-2213 PO (17:30)
[2022-09-13 17:35] VITALS: BP 121/74
--- NOTE | 2022-09-13 17:35 | NUR ---
Patient discharged with v/s stable. Written and verbal after care instructions ABOUT ABD PAIN given and explained. Patient alert, oriented and verbalized understanding of instructions. Ambulatory with steady gait. All questions addressed prior to discharge. ID band removed. Patient advised to follow up with PMD. Rx of NORCO 5-325, MOTRIN given. Patient educated on indication of medication including possible reaction and side effects. Opportunity to ask questions provided and answered.
== END 2022-09-13 17:35 | disposition home or self-care (01) ==
LOC: MED 11:15
DX: R10.31 Right lower quadrant pain (principal); Z79.899 Other long term (current) drug therapy; Z98.890 Other specified postprocedural states; Z90.710 Acquired absence of both cervix and uterus; Z88.8 Allergy status to other drugs, medicaments and biological substances; Z88.1 Allergy status to other antibiotic agents; Z88.2 Allergy status to sulfonamides
CPT/HCPCS: 36415; 80053; 81001; 81025; 83690; 85025; 96372; 99283; J1885